=== PATIENT | female | born 1970 | race Caucasian/White ===

== ENCOUNTER 2017-08-14 11:46 | Emergency (ER) | payer SELFPAY ==
[2017-08-14] MEDS ORDERED: ONDANSETRON 4 MG TAB.RAPDIS PO PRN (12:53)
[2017-08-14] MEDS ORDERED: HYDROCODONE/ACETAMINOPHEN 5-325 MG TABLET PO ONE (12:53)
--- NOTE | 2017-08-14 12:54 | ER Document Report ---
ED Medical Screen (RME) - General Chief Complaint: Headache >24 hrs old Stated Complaint: HEADACHE/NAUSEA Time Seen by Provider: 08/14/17 12:52 Notes: Patient complains of severe occipital headache with vomiting for 1 month. States she has had no type of brain imaging in over 3 years. No recent trauma. She does have a history of cervical spine fusion 3 years ago. Patient declines injections and states she prefers pills for pain. TRAVEL OUTSIDE OF THE [place] IN LAST 30 DAYS: No - Related Data Allergies/Adverse Reactions: clarithromycin [From Biaxin] Allergy (Verified 08/14/17 11:48) rash Past Medical History - Social History Chew tobacco use (# tins/day): No Frequency of alcohol use: None Drug Abuse: None Renal/ Medical History: Denies: Hx Peritoneal Dialysis Past Surgical History: Reports: Hx Section - x3, Hx Hysterectomy, Hx Orthopedic Surgery - c-spine, Hx Tonsillectomy Physical Exam - Vital signs Vitals: Temp Pulse Resp BP Pulse Ox 98.2 F 104 H 15 146/87 H 97 08/14/17 11:54 08/14/17 11:54 08/14/17 11:54 08/14/17 11:54 08/14/17 11:54 Course - Vital Signs Vital signs: Temp Pulse Resp BP Pulse Ox 98.2 F 104 H 15 146/87 H 97 08/14/17 11:54 08/14/17 11:54 08/14/17 11:54 08/14/17 11:54 08/14/17 11:54
--- NOTE | 2017-08-14 13:20 | RADIOLOGY REPORT (SQ) ---
EXAM DESCRIPTION: CT HEAD WITHOUT COMPLETED DATE/TIME: 08/14/2017 1:04 pm REASON FOR STUDY: spivey COMPARISON: None. TECHNIQUE: Axial images acquired through the brain without intravenous contrast. Images reviewed wi th bone, brain and subdural windows. Additional sagittal and coronal reconstructions were generated. Images stored on PACS. All CT scanners at this facility use dose modulation, iterative reconstruction, and/or weight based d osing when appropriate to reduce radiation dose to as low as reasonably achievable (ALARA). [facility]: Dose Right [facility]: CareDose [facility]: Dose Right [facility]: Teradose 4D [facility]: IAMINTOIT RADIATION DOSE: CT Rad equipment meets quality standard of care and radiation dose reduction techniq ues were employed. CTDIvol: 53.2 mGy. DLP: 1017 mGy-cm. mGy. LIMITATIONS: None. FINDINGS: VENTRICLES: Normal size and contour. CEREBRUM: No masses. No hemorrhage. No midline shift. No evidence for acute infarction. Normal gra y/white matter differentiation. No areas of low density in the white matter. CEREBELLUM: No masses. No hemorrhage. No alteration of density. No evidence for acute infarction. EXTRAAXIAL SPACES: No fluid collections. No masses. ORBITS AND GLOBE: No intra- or extraconal masses. Normal contour of globe without masses. CALVARIUM: No fracture. PARANASAL SINUSES: No fluid or mucosal thickening. SOFT TISSUES: No mass or hematoma. OTHER: No other significant finding. IMPRESSION: NORMAL BRAIN CT WITHOUT CONTRAST. EVIDENCE OF ACUTE STROKE: NO. COMMENT: Quality ID # [id number]: Final reports with documentation of one or more dose reduction techniques (e.g., Automated exposure control, adjustment of the mA and/or kV according to patient size, use of iterative reconstruction technique) TECHNICAL DOCUMENTATION: JOB ID: [id number] [employer]- All Rights Reserved Reading location - IP/workstation name: [email or web address]
[2017-08-14] MEDS ORDERED: METOCLOPRAMIDE HCL INJ/PF 10 MG/2 ML SDV IV ONE (14:32)
[2017-08-14] MEDS ORDERED: NORMAL SALINE 1000 ML 1,000 ML IV ONE (14:32)
[2017-08-14] MEDS ORDERED: DIPHENHYDRAMINE HCL 50 MG/ML VIAL IV ONE (14:32)
[2017-08-14] MEDS ORDERED: KETOROLAC TROMETHAMINE INJ/PF 30 MG/1 ML SDV IV ONE (14:32)
--- NOTE | 2017-08-14 14:35 | ER Document Report ---
ED Headache - General Chief Complaint: Headache >24 hrs old Stated Complaint: HEADACHE/NAUSEA Time Seen by Provider: 08/14/17 12:52 Mode of Arrival: Ambulatory Information source: Patient Notes: Patient presents complaining of intermittent headache pain for the past month. Patient states that she will develop headache in the morning and will gradually worsened through the day and then resolved at nighttime. Patient states that she has had some nausea with vomiting 3 episodes today. Patient denies any diarrhea. Patient denies any fever or head injury. Patient without any history of IV drug abuse. Patient does complain of occipital headache pain from the right side of her neck. Patient states that her headache pain worsens whenever she rotates her head laterally to the right. Patient does report previous cervical spine fusion in the past. TRAVEL OUTSIDE OF THE [place] IN LAST 30 DAYS: No - HPI Patient complains to provider of: Headache Onset: Other - Daily for the past month Onset was: Gradual Timing: Still present Quality of pain: Achy Pain Level: 4 Associated symptoms: denies: Fever, Photophobia Exacerbated by: Noise - Related Data Allergies/Adverse Reactions: clarithromycin [From Biaxin] Allergy (Verified 08/14/17 11:48) rash Past Medical History - General Information source: Patient - Social History Smoking Status: Never Smoker Chew tobacco use (# tins/day): No Frequency of alcohol use: None Drug Abuse: None Occupation: None Family History: Reviewed & Not Pertinent Patient has suicidal ideation: No Patient has homicidal ideation: No - Past Medical History Cardiac Medical History: Reports: Other - Tachycardia Endocrine Medical History: Reports: Hx Hypothyroidism Renal/ Medical History: Denies: Hx Peritoneal Dialysis Psychiatric Medical History: Reports: Hx Bipolar Disorder Past Surgical History: Reports: Hx Section - x3, Hx Hysterectomy, Hx Orthopedic Surgery - c-spine, Hx Tonsillectomy Review of Systems - Review of Systems Constitutional: No symptoms reported. denies: Fever, Recent illness EENT: No symptoms reported Cardiovascular: No symptoms reported. denies: Chest pain Respiratory: No symptoms reported. denies: Cough Gastrointestinal: Nausea, Vomiting. denies: Abdominal pain, Diarrhea Genitourinary: No symptoms reported Female Genitourinary: No symptoms reported Musculoskeletal: Back pain - Right upper back, Neck pain - Right lateral side of neck Skin: No symptoms reported. denies: Rash Hematologic/Lymphatic: No symptoms reported Neurological/Psychological: Headaches. denies: Confusion, Weakness, Lost consciousness Physical Exam - Vital signs Vitals: Temp Pulse Resp BP Pulse Ox 98.2 F 104 H 15 146/87 H 97 08/14/17 11:54 08/14/17 11:54 08/14/17 11:54 08/14/17 11:54 08/14/17 11:54 - General General appearance: Appears well, Alert In distress: None - HEENT Head: Normocephalic Eyes: Normal Conjunctiva: Normal Ears: Normal External canal: Normal Tympanic membrane: Normal Nasal: Normal Mouth/Lips: Normal Mucous membranes: Normal Pharynx: Normal. No: Erythema, Tonsillar hypertrophy Neck: Other - right paraspinal cervical muscle tenderness. No: Brudzinski, Lymphadenopathy, Meningismus - Respiratory Respiratory status: No respiratory distress Chest status: Nontender Breath sounds: Normal Chest palpation: Normal - Cardiovascular Rhythm: Regular Heart sounds: S1 appreciated, S2 appreciated Murmur: No - Back Back: Tender - Right trapezius muscle tenderness with spasm. No: Deformity/step -off, Vertebra tenderness - Extremities General upper extremity: Normal inspection, Nontender, Normal strength General lower extremity: Normal inspection, Nontender, Normal strength - Neurological Neuro grossly intact: Yes Cognition: Normal Herson Coma Scale Eye Opening: Spontaneous Herson Coma Scale Verbal: Oriented [place] Coma Scale Motor: Obeys Commands Herson Coma Scale Total: 15 Speech: Normal. No: Dysarthria Cranial nerves: Normal. No: Facial palsy, Tongue deviation Cerebellar coordination: Normal. No: Gait ataxia Motor strength normal: LUE, RUE, LLE, RLE Notes: no focal neurologic deficits - Psychological Associated symptoms: Normal affect, Normal mood - Skin Skin Temperature: Warm Skin Moisture: Dry Skin Color: Normal Course - Re-evaluation Re-evalutation: 08/14/17 16:10 Patient reports headache pain is down to 2 out of 5 scale. She does present with symptoms concerning for tension headache. Patient encouraged to follow-up with her primary doctor for recheck of her headache symptoms. The patient presents with headache without signs of COLLECTION ADVISOR bleed, stroke, infection, or other serious etiology. The patient is neurologically intact. Given the extremely low risk of these diagnoses further testing and evaluation for these possibilities does not appear to be indicated at this time. The patient has been instructed to return if the symptoms worsen or change in any way. - Vital Signs Vital signs: Temp Pulse Resp BP Pulse Ox 98.7 F 97 18 122/59 L 96 08/14/17 16:38 08/14/17 16:38 08/14/17 16:38 08/14/17 16:38 08/14/17 16:38 - Diagnostic Test Radiology reviewed: Reports reviewed Discharge - Discharge Clinical Impression: Headache Qualifiers: Headache type: unspecified Headache chronicity pattern: unspecified pattern Intractability: not intractable Qualified Code(s): R51 - Headache Condition: Stable Disposition: HOME, SELF-CARE Instructions: Headache ([facility]), Muscle Relaxers ([facility]), Muscle Strain ([facility]), Reglan ([facility]), Tension Headache ([facility]), Toradol Injection ([facility]) Additional Instructions: Return immediately for any new or worsening symptoms Followup with your primary care provider, call tomorrow to make a followup appointment Follow-up with a neurologist for further evaluation of headache symptoms Prescriptions: Methocarbamol [Robaxin 500 Mg Tablet] 500 mg PO QID PRN #20 tablet PRN Reason: Promethazine HCl [Phenergan 25 mg Tablet] 25 mg PO Q6H PRN #12 tablet PRN Reason: Referrals: MER MCCORMICK MD [EMERITUS] - Follow up as needed RADHA PECK MD [NO LOCAL MD] - Follow up as needed
[2017-08-14] MEDS ORDERED: DEXAMETHASONE SOD PHOS INJ 10 MG/1 ML VIAL IV ONE (16:10)
[2017-08-14] MEDS ORDERED: METHOCARBAMOL 500 MG TABLET PO ONE (16:10)
[2017-08-14 17:09] VITALS: BP 122/59
== END 2017-08-14 16:55 | disposition home or self-care (01) ==
LOC: ER 11:46
DX: R51 Headache (principal); R11.2 Nausea with vomiting, unspecified; R00.0 Tachycardia, unspecified
CPT/HCPCS: 99284; 96361; 96374; 96375; 70450; J1200; S0119; J1885; J2765; J7030; J1100

== ENCOUNTER 2017-09-11 11:26 | Emergency (ER) | payer MEDICAID ==
--- NOTE | 2017-09-11 12:34 | ER Document Report ---
ED Medical Screen (RME) - General Chief Complaint: Shortness Of Breath Stated Complaint: SHORTNESS OF BREATH/CHEST PAIN Time Seen by Provider: 09/11/17 12:16 Mode of Arrival: Ambulatory Information source: Patient Notes: 47-year-old female with a history of hypothyroidism, tachycardia and previous PE in 2013 presents with complaint of shortness of breath that started 3 days prior to arrival, chest pain that started today and swelling of her feet. She is also complaining of worsening pain with deep breathing. Patient was placed on Xarelto for 1 month at the time of her previous PE. 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 She states the symptoms she is feeling today are very similar. She denies any recent illnesses, tobacco use, recent travel, recent surgery, recent injury , estrogen use. I have greeted and performed a rapid medicall assessment of the patient. A comprehensive evaluation and assessment will be performed by another ED provider. Medical decision making, lab review/xrays if performed will be reviewed by the ED provider assuming the patient. PHYSICAL EXAMINATION: GENERAL: Well-appearing, well-nourished and in no acute distress. HEAD: Atraumatic, normocephalic. EYES: Pupils equal round extraocular movements intact, conjunctiva are normal. ENT: Nares patent NECK: Normal range of motion LUNGS: No respiratory distress Musculoskeletal: Normal range of motion, no edema NEUROLOGICAL: Normal speech, normal gait. PSYCH: Normal mood, normal affect. SKIN: Warm, Dry, normal turgor, no rashes or lesions noted. TRAVEL OUTSIDE OF THE [place] IN LAST 30 DAYS: No - HPI Onset: Other - 3 days prior to arrival Onset/Duration: Gradual, Worse Associated Symptoms: Chest pain, Leg swelling, Shortness of breath Exacerbated by: Denies Relieved by: Denies Similar symptoms previously: Yes Recently seen / treated by doctor: No - Related Data Smoking: Quit greater than 1 year Frequency of alcohol use: None Drug Abuse: None Allergies/Adverse Reactions: clarithromycin [From Biaxin] Allergy (Verified 09/11/17 11:26) rash Past Medical History - Social History Chew tobacco use (# tins/day): No Frequency of alcohol use: None Drug Abuse: None Endocrine Medical History: Reports: Hx Hypothyroidism Renal/ Medical History: Denies: Hx Peritoneal Dialysis Psychiatric Medical History: Reports: Hx Bipolar Disorder Past Surgical History: Reports: Hx Section - x3, Hx Hysterectomy, Hx Orthopedic Surgery - c-spine, Hx Tonsillectomy Physical Exam - Vital signs Vitals: Temp Pulse Resp BP Pulse Ox 98.4 F 88 18 141/84 H 97 09/11/17 11:41 09/11/17 11:41 09/11/17 11:41 09/11/17 11:41 09/11/17 11:41 Course - Vital Signs Vital signs: Temp Pulse Resp BP Pulse Ox 98.4 F 88 18 141/84 H 97 09/11/17 11:41 09/11/17 11:41 09/11/17 11:41 09/11/17 11:41 09/11/17 11:41
[2017-09-11 13:16] LABS: ABSOLUTE EOSINOPHILS # (AUTO) 0.2 10^3/uL (0.0-0.6); ABSOLUTE LYMPHOCYTES (AUTO) 2.5 10^3/uL (0.5-4.7); ABSOLUTE MONOCYTES (AUTO) 0.3 10^3/uL (0.1-1.4); ABSOLUTE NEUT (AUTO) 3.6 10^3/uL (1.7-8.2); BASOPHILS % (AUTO) 0.6 % (0-2); EOSINOPHILS % (AUTO) 2.3 % (0-6); HEMATOCRIT 35.9 % (36.0-47.0); HEMOGLOBIN 11.8 g/dL (12.0-15.5); LYMPHOCYTES % (AUTO) 38.5 % (13-45); MEAN CORPUSCULAR HEMOGLOBIN 27.1 pg (27.0-33.4); MEAN CORPUSCULAR HGB CONC 32.9 g/dL (32.0-36.0); MEAN CORPUSCULAR VOLUME 82 fl (80-97); PLATELET COUNT 248 10^3/uL (150-450); RED BLOOD COUNT 4.37 10^6/uL (3.72-5.28); RED CELL DISTRIBUTION WIDTH 16.1 % (11.5-14.0); SEGMENTED NEUTROPHILS % (AUTO) 54.6 % (42-78); TOTAL CELLS COUNTED % (AUTO) 100 %; WHITE BLOOD COUNT 6.6 10^3/uL (4.0-10.5)
[2017-09-11 13:35] LABS: ALANINE AMINOTRANSFERASE 37 U/L (9-52); ALBUMIN 4.1 g/dL (3.5-5.0); ALKALINE PHOSPHATASE 71 U/L (38-126); ANION GAP 15 (5-19); ASPARTATE AMINO TRANSFERASE 24 U/L (14-36); BILIRUBIN,DIRECT 0.2 mg/dL (0.0-0.4); BILIRUBIN,TOTAL 0.2 mg/dL (0.2-1.3); BLOOD UREA NITROGEN 19 mg/dL (7-20); CALCIUM 9.6 mg/dL (8.4-10.2); CARBON DIOXIDE 23 mmol/L (22-30); CHLORIDE 107 mmol/L (98-107); GLUCOSE 104 mg/dL (75-110); POTASSIUM 4.5 mmol/L (3.6-5.0); SODIUM 145.3 mmol/L (137-145); TOTAL PROTEIN 6.8 g/dL (6.3-8.2)
[2017-09-11] MEDS ORDERED: NITROGLYCERIN 2% OINTMENT 1 GM PACKET TP ONE (14:24)
[2017-09-11] MEDS ORDERED: NITROGLYCERIN 0.4 MG/TAB 25 TAB/BOTTLE SL PRN (14:24)
[2017-09-11] MEDS ORDERED: ASPIRIN 325 MG TABLET PO ONE (14:26)
--- NOTE | 2017-09-11 14:33 | ER Document Report ---
ED Cardiac - General Chief Complaint: Shortness Of Breath Stated Complaint: SHORTNESS OF BREATH/CHEST PAIN Time Seen by Provider: 09/11/17 12:16 Mode of Arrival: Ambulatory Notes: Patient is a 48-year-old female that presents today stating on Saturday she started to have some shortness of breath. She denies any runny nose, congestion , cough, calf pain or leg swelling, recent trips of travel. She does state today she started to have some left-sided nonradiating chest discomfort. She denies any nausea, vomiting, or aggravating or relieving factors. Patient states she had a pulmonary embolism 2 years ago and was only on Xarelto for 2 months. She was told she no longer needed to take the medication. She was in assisted prior to the onset of the pulmonary embolism and denies any hormone therapy. She denies a family history of pulmonary emboli. She denies a family history of early heart attacks or strokes. Patient also states very mild frontal slow developing headache. She denies any weakness or numbness to the arms or legs. TRAVEL OUTSIDE OF THE [place] IN LAST 30 DAYS: No - HPI Patient complains to provider of: Chest pain - See above Was the onset of pain: Gradual Is the pain a: New problem Chest pain location: Under breast Quality of pain: Other - See above Chest pain radiation location: None - See above Severity now: Mild Severity at worst: Mild Pain level currently: 2 Positive cardiac history: Yes Associated symptoms: Other - See above Exacerbated by: Denies Relieved by: Nothing Similar symptoms previously: Yes Recently seen / treated by doctor: No - Related Data Allergies/Adverse Reactions: clarithromycin [From Biaxin] Allergy (Verified 09/11/17 11:26) rash Past Medical History - General Information source: Patient - Social History Smoking Status: Former Smoker Cigarette use (# per day): No Chew tobacco use (# tins/day): No Smoking Education Provided: No Frequency of alcohol use: None Drug Abuse: None Family History: Reviewed & Not Pertinent Patient has suicidal ideation: No Patient has homicidal ideation: No Endocrine Medical History: Reports: Hx Hypothyroidism Renal/ Medical History: Denies: Hx Peritoneal Dialysis Psychiatric Medical History: Reports: Hx Bipolar Disorder Past Surgical History: Reports: Hx Section - x3, Hx Hysterectomy, Hx Orthopedic Surgery - c-spine, Hx Tonsillectomy Review of Systems - Review of Systems Constitutional: denies: Fever EENT: denies: Eye discharge, Nose discharge Cardiovascular: denies: Palpitations, Dizziness, Lightheaded Respiratory: Short of breath. denies: Hurts to breathe, Hemoptysis Gastrointestinal: denies: Vomiting Genitourinary: denies: Dysuria Musculoskeletal: denies: Leg swelling Skin: Other - no hives. denies: Rash Neurological/Psychological: Other - no slurred speech -: Yes All other systems reviewed and negative Physical Exam - Vital signs Vitals: Temp Pulse Resp BP Pulse Ox 98.4 F 88 18 141/84 H 97 09/11/17 11:41 09/11/17 11:41 09/11/17 11:41 09/11/17 11:41 09/11/17 11:41 Interpretation: Normal Notes: Reviewed vital signs and nursing note as charted by RN. CONSTITUTIONAL: Alert and oriented and responds appropriately to questions. Well -appearing; well-nourished HEAD: Normocephalic; atraumatic EYES: PERRL; sclerae non-icteric NECK: Supple without meningismus; non-tender CARD: Regular rate and rhythm; no murmurs; symmetric distal pulses RESP: Normal chest excursion without splinting or tachypnea; breath sounds clear and equal bilaterally ABD/GI: Normal bowel sounds; non-distended; soft, non-tender BACK: The back appears normal and is non-tender to palpation EXT: Normal ROM in all joints; non-tender to palpation, no edema SKIN: Normal color for age and race; warm; dry; no acute lesions noted NEURO: CN 2-12 intact; Moves all extremities equally; Motor and sensory function intact PSYCH: The patient's mood and manner are appropriate. Grooming and personal hygiene are appropriate Course - Re-evaluation Re-evalutation: EKG shows a heart of 81, normal sinus rhythm, normal axis, no obvious ST elevation or depression. Inverted T-wave in lead III Given the above history and physical examination, we will obtain basic labs, troponin, CTA of the chest, provide aspirin and nitroglycerin, and reassess. 09/11/17 14:39 Labs and troponin as recorded. CTA has been performed and results pending. 09/11/17 15:07 CTA is unremarkable. 09/11/17 18:10 Repeat EKG shows a heart rate of 93, normal sinus rhythm, normal axis, no obvious ST elevation or depression. No change from previous. Second troponin is normal. Given the above history and physical examination, heart score of 1, repeat troponin that is unremarkable, stable vital signs, I believe it is reasonable to discharge the patient home at this time with outpatient cardiology follow- up. I explained to the patient around 1% chance of MACE in the next 6 weeks. I have explained that I am happy to admit the patient for further evaluation regarding the small percentage or discharge her home with follow-up. She states she would rather go home. I think that this is a reasonable option. - Vital Signs Vital signs: Temp Pulse Resp BP Pulse Ox 98.4 F 88 16 139/71 H 96 09/11/17 11:41 09/11/17 11:41 09/11/17 18:04 09/11/17 18:04 09/11/17 18:04 - Laboratory Result Diagrams: 09/11/17 12:33 09/11/17 12:33 Laboratory results interpreted by me: 09/11/17 09/11/17 12:33 12:33 Hgb 11.8 L Hct 35.9 L RDW 16.1 H Sodium 145.3 H Discharge - Discharge Clinical Impression: Chest pain Qualifiers: Chest pain type: unspecified Qualified Code(s): R07.9 - Chest pain, unspecified Condition: Good Disposition: HOME, SELF-CARE Additional Instructions: Come back immediately with any increased pain, change in location or quality of pain, fevers or vomiting, or any other acute problems. 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 I would recommend taking 81 mg aspirin daily as well as Prilosec [id number]. Referrals: HILTON VILLAGRAN MD [ACTIVE STAFF] - Follow up as needed
--- NOTE | 2017-09-11 14:46 | RADIOLOGY REPORT (SQ) ---
EXAM DESCRIPTION: CTA CHEST COMPLETED DATE/TIME: 09/11/2017 2:04 pm REASON FOR STUDY: Short of breath previous PE chest pain, shortness of breath COMPARISON: None. TECHNIQUE: CT scan of the chest performed using helical scanning technique with dynamic intravenous contrast injection. Images reviewed with lung, soft tissue and bone windows. Reconstructed coronal and sagittal MPR images reviewed. Additional 3 dimensional post-processing performed to develop Maximal Intensity Projection images ([place] P). All images stored on PACS. All CT scanners at this facility use dose modulation, iterative reconstruction, and/or weight based d osing when appropriate to reduce radiation dose to as low as reasonably achievable (ALARA). [facility]: Dose Right [facility]: CareDose [facility]: Dose Right [facility]: Teradose 4D [facility]: [employer] CONTRAST TYPE AND DOSE: 86.4 mL of IV Isovue 370- low osmolar. Contrast bolus optimized for the pulmonary arteries. Not diagnostic for the aorta. RENAL FUNCTION: Creatinine 0.67 RADIATION DOSE: CT Rad equipment meets quality standard of care and radiation dose reduction techniq ues were employed. CTDIvol: 13.2 - 38.0 mGy. DLP: 1414 mGy-cm. . LIMITATIONS: None. FINDINGS: LUNGS AND PLEURA: No masses, infiltrates, pneumothorax. No pleural effusions, calcificati ons. AORTA AND GREAT VESSELS: No aneurysm. Contrast bolus not optimized for the aorta. HEART: No pericardial effusion. No significant coronary artery calcifications. PULMONARY ARTERIES: No emboli visualized in the main pulmonary arteries or the segmental branches. HILAR AND MEDIASTINAL STRUCTURES: No identified masses or abnormal nodes. HARDWARE: None in the chest. UPPER ABDOMEN: Post cholecystectomy. THYROID AND OTHER SOFT TISSUES: No masses. No adenopathy. BONES: No acute or significant finding. 3D MIPS: Confirm above findings. OTHER: No other significant finding. IMPRESSION: No acute infiltrates. No CTA evidence of acute pulmonary emboli COMMENT: Quality ID # 436: Final reports with documentation of one or more dose reduction techniques (e.g., Automated exposure control, adjustment of the mA and/or kV according to patient size, use of iterative reconstruction technique) TECHNICAL DOCUMENTATION: JOB ID: [id number] [employer]- All Rights Reserved Reading location - IP/workstation name: [email or web address]
[2017-09-11] MEDS ORDERED: ACETAMINOPHEN 325 MG TABLET PO ONE (15:42)
[2017-09-11] MEDS ORDERED: MAG HYDROX/AL HYDROX/SIMETH SUSP 30 ML UDCUP PO ONE (16:02)
[2017-09-11] MEDS ORDERED: LIDOCAINE 2% VISCOUS SOLN 20 ML UDCUP PO ONE (16:02)
[2017-09-11] MEDS ORDERED: METOCLOPRAMIDE HCL ORAL SOLN 10 MG/10 ML UDCUP PO ONE (16:02)
[2017-09-11 18:56] VITALS: BP 132/70
--- NOTE | 2017-09-11 22:55 | EKG REPORT ---
SEVERITY:- NORMAL ECG - SINUS RHYTHM : Confirmed by: Meg Vásquez 11-Sep-2017 19:54:48
--- NOTE | 2017-09-12 08:40 | EKG REPORT ---
SEVERITY:- NORMAL ECG - SINUS RHYTHM : Confirmed on behalf of: Meg Vásquez 12-Sep-2017 08:39:58
== END 2017-09-11 18:43 | disposition home or self-care (01) ==
LOC: ER 11:26
DX: R06.02 Shortness of breath (principal); R07.9 Chest pain, unspecified; E03.9 Hypothyroidism, unspecified; Z90.710 Acquired absence of both cervix and uterus
CPT/HCPCS: 93005; 99285; 36415; 85025; 81025; 80053; 84484; 71275; 93010; J3490 ×6

== ENCOUNTER 2017-10-07 10:02 | Emergency (ER) | payer MEDICAID ==
--- NOTE | 2017-10-07 10:57 | ER Document Report ---
ED Medical Screen (RME) - General Chief Complaint: Suicidal Ideation Stated Complaint: PSYCH EVAL Time Seen by Provider: 10/07/17 10:50 Mode of Arrival: Ambulatory Information source: Patient Notes: 47-year-old female who is on Cymbalta presents in an Seroquel presents with complaints of anxiety depression suicidal ideations. Patient notes she does not want to actually harm herself feels that something needs to be done because of her anxiety. She was recently in [place] for suicidal ideations, was there for 1 week notes that when she got out she does feel better. Patient notes he took her off Lamictal and believes this may be the cause of her depression I have greeted and performed a rapid initial assessment of this patient. A comprehensive ED assessment and evaluation of the patient, analysis of test results and completion of the medical decision making process will be conducted by additional ED providers. PHYSICAL EXAMINATION: GENERAL: Well-appearing, well-nourished and in no acute distress. HEAD: Atraumatic, normocephalic. EYES: Pupils equal round extraocular movements intact, conjunctiva are normal. ENT: Nares patent NECK: Normal range of motion LUNGS: No respiratory distress Musculoskeletal: Normal range of motion NEUROLOGICAL: Normal speech, normal gait. PSYCH: Tearful SKIN: Warm, Dry, normal turgor, no rashes or lesions noted. TRAVEL OUTSIDE OF THE [place] IN LAST 30 DAYS: No - Related Data Allergies/Adverse Reactions: clarithromycin [From Biaxin] Allergy (Verified 10/07/17 10:08) rash Past Medical History Endocrine Medical History: Reports: Hx Hypothyroidism Renal/ Medical History: Denies: Hx Peritoneal Dialysis Psychiatric Medical History: Reports: Hx Bipolar Disorder Past Surgical History: Reports: Hx Section - x3, Hx Hysterectomy, Hx Orthopedic Surgery - c-spine, Hx Tonsillectomy Physical Exam - Vital signs Vitals: Temp Pulse Resp BP Pulse Ox 99.0 F 83 18 138/92 H 95 10/07/17 10:16 10/07/17 10:16 10/07/17 10:16 10/07/17 10:16 10/07/17 10:16 Course - Vital Signs Vital signs: Temp Pulse Resp BP Pulse Ox 99.0 F 83 18 138/92 H 95 10/07/17 10:16 10/07/17 10:16 10/07/17 10:16 10/07/17 10:16 10/07/17 10:16
[2017-10-07 11:27] LABS: ABSOLUTE EOSINOPHILS # (AUTO) 0.2 10^3/uL (0.0-0.6); ABSOLUTE LYMPHOCYTES (AUTO) 2.3 10^3/uL (0.5-4.7); ABSOLUTE MONOCYTES (AUTO) 0.2 10^3/uL (0.1-1.4); ABSOLUTE NEUT (AUTO) 3.4 10^3/uL (1.7-8.2); BASOPHILS % (AUTO) 0.5 % (0-2); HEMATOCRIT 35.2 % (36.0-47.0); HEMOGLOBIN 11.7 g/dL (12.0-15.5); LYMPHOCYTES % (AUTO) 37.6 % (13-45); MEAN CORPUSCULAR HGB CONC 33.1 g/dL (32.0-36.0); MEAN CORPUSCULAR VOLUME 82 fl (80-97); MONOCYTES % (AUTO) 3.2 % (3-13); PLATELET COUNT 224 10^3/uL (150-450); RED BLOOD COUNT 4.31 10^6/uL (3.72-5.28); RED CELL DISTRIBUTION WIDTH 15.3 % (11.5-14.0); SEGMENTED NEUTROPHILS % (AUTO) 55.7 % (42-78); TOTAL CELLS COUNTED % (AUTO) 100 %; WHITE BLOOD COUNT 6.1 10^3/uL (4.0-10.5)
[2017-10-07 11:42] LABS: APPEARANCE,URINE SLIGHTLY-CLOUDY; BILIRUBIN,URINE NEGATIVE (NEGATIVE); COLOR,URINE YELLOW; GLUCOSE, URINE NEGATIVE (NEGATIVE); KETONES,URINE NEGATIVE (NEGATIVE); LEUKOCYTE ESTERASE,URINE NEGATIVE (NEGATIVE); NITRITE,URINE NEGATIVE (NEGATIVE); PROTEIN,URINE NEGATIVE (NEGATIVE); URINE SPECIFIC GRAVITY 1.018; UROBILINOGEN,URINE NEGATIVE mg/dL (<2.0)
[2017-10-07 11:55] LABS: ACETAMINOPHEN < 10 ug/mL (10-30); ALANINE AMINOTRANSFERASE 64 U/L (9-52); ALCOHOL < 10 mg/dL (NONE DETECTED); ALKALINE PHOSPHATASE 96 U/L (38-126); ANION GAP 11 (5-19); ASPARTATE AMINO TRANSFERASE 27 U/L (14-36); BILIRUBIN,DIRECT 0.2 mg/dL (0.0-0.4); BILIRUBIN,TOTAL 0.2 mg/dL (0.2-1.3); BLOOD UREA NITROGEN 16 mg/dL (7-20); CALCIUM 9.1 mg/dL (8.4-10.2); CARBON DIOXIDE 26 mmol/L (22-30); CHLORIDE 108 mmol/L (98-107); GLUCOSE 128 mg/dL (75-110); SALICYLATE < 1.0 mg/dL (2.0-20.0); SODIUM 145.2 mmol/L (137-145); TOTAL PROTEIN 6.6 g/dL (6.3-8.2)
--- NOTE | 2017-10-07 11:59 | ER Document Report ---
ED General - General Mode of Arrival: Ambulatory Information source: Patient TRAVEL OUTSIDE OF THE [place] IN LAST 30 DAYS: No <LUIS HOLLIDAY - Last Filed: 10/07/17 13:13> <LUI BARRERA - Last Filed: 10/07/17 14:40> <ADOLFOWILL - Last Filed: 10/07/17 14:48> - General Chief Complaint: Suicidal Ideation Stated Complaint: PSYCH EVAL Time Seen by Provider: 10/07/17 10:50 Notes: Patient is a 47-year-old female with anxiety, bipolar disorder and depression presents to the emergency department complaining of increased anxiety, depression, suicidal ideation and dizzines. Patient states that she was recently at [facility] for 1 week and states that she felt better after leaving, but approximately 1 week later she began to become extremely dizzy and become extremely depressed. She describes her depression as a fogginess. Patient admits to suicidal ideation but denies a suicidal plan. She states she just wants everything to be over. Patient states she has had previous workups performed regarding her dizziness which has been found to be unremarkable. According to [place] Controlled Substance website, patient was prescribed Clonazepam (1mg, 3x daily) for approximately 5 years until she was discharged from [facility] for which she was prescribed a 1 week supply. No evidence shows she has filled any other prescriptions. Patient was seen and discharged 1 month ago for shortness of breath and chest pain and had a negative CTA of chest and abdomen. Patient was also seen and discharged approximately 2 months ago for a headache and nausea and had a negative CT scan of the head. (LUIS HOLLIDAY) - Related Data Allergies/Adverse Reactions: clarithromycin [From Biaxin] Allergy (Verified 10/07/17 10:08) rash Past Medical History - General Information source: Patient - Social History Smoking Status: Never Smoker Frequency of alcohol use: None Drug Abuse: None Family History: Reviewed & Not Pertinent Patient has suicidal ideation: Yes Patient has homicidal ideation: No Endocrine Medical History: Reports: Hx Hypothyroidism Psychiatric Medical History: Reports: Hx Bipolar Disorder Past Surgical History: Reports: Hx Section - x3, Hx Hysterectomy, Hx Orthopedic Surgery - c-spine, Hx Tonsillectomy <LUIS HOLLIDAY - Last Filed: 10/07/17 13:13> Review of Systems - Review of Systems Constitutional: No symptoms reported EENT: No symptoms reported Cardiovascular: See HPI, Dizziness Respiratory: No symptoms reported Gastrointestinal: No symptoms reported Genitourinary: No symptoms reported Female Genitourinary: No symptoms reported Musculoskeletal: No symptoms reported Hematologic/Lymphatic: No symptoms reported Neurological/Psychological: See HPI, Depression, Anxiety, Suicidal ideation -: Yes All other systems reviewed and negative <LUIS HOLLIDAY - Last Filed: 10/07/17 13:13> Physical Exam - General General appearance: Appears well, Alert In distress: None - HEENT Head: Normocephalic, Atraumatic Eyes: Normal Conjunctiva: Normal Extraocular movements intact: Yes Pupils: PERRL Mucous membranes: Normal Neck: Normal - Respiratory Respiratory status: No respiratory distress - Cardiovascular Rhythm: Regular Heart sounds: Normal auscultation Murmur: No Friction rub: No Gallop: None auscultated - Abdominal Inspection: Morbidly Obese Distension: No distension Bowel sounds: Normal Tenderness: Nontender Organomegaly: No organomegaly - Back Back: Normal - Extremities General upper extremity: Normal ROM General lower extremity: Normal ROM - Neurological Neuro grossly intact: Yes Cognition: Normal Orientation: AAOx4 [place] Coma Scale Eye Opening: Spontaneous [place] Coma Scale Verbal: Oriented [place] Coma Scale Motor: Obeys Commands [place] Coma Scale Total: 15 Speech: Normal - Psychological Associated symptoms: Normal affect, Normal mood - Skin Skin Temperature: Warm Skin Moisture: Dry Skin Color: Normal <MGCOLLINHENRY - Last Filed: 10/07/17 13:13> - Vital signs Vitals: Temp Pulse Resp BP Pulse Ox 99.0 F 83 18 138/92 H 95 10/07/17 10:16 10/07/17 10:16 10/07/17 10:16 10/07/17 10:16 10/07/17 10:16 Course - Laboratory Result Diagrams: 10/07/17 11:05 10/07/17 11:05 <LUIS HOLLIDAY - Last Filed: 10/07/17 13:13> - Laboratory Result Diagrams: 10/07/17 11:05 10/07/17 11:05 <LUI BARRERA - Last Filed: 10/07/17 14:40> - Laboratory Result Diagrams: 10/07/17 11:05 10/07/17 11:05 <WILL MATA - Last Filed: 10/07/17 14:48> - Vital Signs Vital signs: Temp Pulse Resp BP Pulse Ox 99.0 F 83 18 138/92 H 95 10/07/17 10:16 10/07/17 10:16 10/07/17 10:16 10/07/17 10:16 10/07/17 10:16 - Laboratory Laboratory results interpreted by me: 10/07/17 10/07/17 11:05 11:05 Hgb 11.7 L Hct 35.2 L RDW 15.3 H Sodium 145.2 H Chloride 108 H Glucose 128 H ALT 64 H Salicylates < 1.0 L Acetaminophen < 10 L Discharge <LUIS HOLLIDAY - Last Filed: 10/07/17 13:13> <LUI BARRERA - Last Filed: 10/07/17 14:40> <WILL MATA - Last Filed: 10/07/17 14:48> - Discharge Clinical Impression: Suicidal ideation, Dizziness Bipolar disorder, unspecified Qualifiers: Active/Remission status: in partial remission Most recent bipolar episode type : most recent episode unspecified type Qualified Code(s): F31.70 - Bipolar disorder, currently in remission, most recent episode unspecified Clinical Impression: (Ruled Out): Depression Condition: Stable Disposition: HOME, SELF-CARE Additional Instructions: Bipolar Disorder Bipolar disorder is also called manic-depressive disorder. Depression alternates with brain hyperactivity called sujata. Each phase lasts from several days to a few weeks. We don't know exactly what causes bipolar disorder , but it's treatable. During the "manic phase," you may feel elated and energetic. You may have racing thoughts, rapid speech, increased activity, and grandiose ideas. During this time, you may not realize how poor your judgement is. Inappropriate spending, drug abuse, excessive alcohol use, marriage problems, and irresponsible sexual behavior are common during the manic phase. During the "depressive phase," you might feel depressed, guilty, worthless , fatigued, and unable to concentrate. You might have thoughts of suicide. Good treatments are available for bipolar disorder. [place] is a classic drug for bipolar disorder, and is still often useful. If the manic phase is very mild, an antidepressant alone can be prescribed. If the manic phase is very severe, an antipsychotic medicine (such as Haldol) may be needed. The treatment must be matched to your symptoms, so it's important to work closely with your psychiatric care provider. Contact your physician, the hospital emergency center, crisis line, or your counsellor if you are losing control or having self-destructive thoughts. You have been provided prescriptions for your medications; please take as prescribed. Please decrease your Cymbalta to 60 mg daily Please decrease your Seroquel to 100mg nightly Please start Depakote 250 mg twice daily Please start BuSpar 5 mg every morning and 10 mg nightly Please stop taking your Klonopin Please continue taking your prazosin as previously prescribed Your recommended to follow-up with [facility] tomorrow for your continued mental health services; it is recommended you contact them in regards to your referral. AT ANY TIME, IF YOUR SYMPTOMS CHANGE SIGNIFICANTLY OR WORSEN OR YOU DEVELOP NEW SYMPTOMS, RETURN TO THE EMERGENCY DEPARTMENT IMMEDIATELY FOR RE-EVALUATION. Prescriptions: Quetiapine Fumarate [Seroquel 100 mg Tablet] 100 mg PO QHS #7 tablet Buspirone HCl [Buspar 5 mg Tablet] 1 tab PO ASDIR #21 tab Divalproex Sodium [Depakote] 250 mg PO BID #14 tablet. Duloxetine HCl [Cymbalta] 60 mg PO DAILY #7 capsule. Referrals: SANDRA VELASQUEZ FNP-C [Primary Care Provider] - Follow up as needed [facility] [Outside] - Follow up tomorrow Scribe Attestation: 10/07/17 14:22 I personally performed the services described in the documentation, reviewed and edited the documentation which was dictated to the scribe in my presence, and it accurately records my words and actions. (WILL MATA) Scribe Documentation - Scribe Written by Ranulfo:: Ranulfo Qiu, 10/07/2017 12:08 acting as scribe for :: Adolfo <LUIS HOLLIDAY - Last Filed: 10/07/17 13:13>
[2017-10-07 12:01] LABS: URINE AMPHETAMINES SCREEN NEGATIVE; URINE BARBITURATES SCREEN UNCONFIRMED POSITIVE; URINE BENZODIAZEPINES SCREEN NEGATIVE; URINE COCAINE SCREEN NEGATIVE; URINE MARIJUANA (THC) SCREEN NEGATIVE; URINE METHADONE SCREEN NEGATIVE; URINE PHENCYCLIDINE SCREEN NEGATIVE
[2017-10-07 12:20] LABS: FREE T3 3.19 pg/mL (2.77-5.27); FREE T4 (FREE THYROXINE) 0.94 ng/dL (0.78-2.19)
--- NOTE | 2017-10-07 13:31 | EKG REPORT ---
SEVERITY:- NORMAL ECG - SINUS RHYTHM : Confirmed by: Amaury Griffin MD 07-Oct-2017 13:30:31
[2017-10-07] MEDS ORDERED: ACETAMINOPHEN 325 MG TABLET PO ONE (14:27)
[2017-10-07 15:00] VITALS: BP 128/72
== END 2017-10-07 15:00 | disposition home or self-care (01) ==
LOC: ER 10:02
DX: F31.70 Bipolar disorder, currently in remission, most recent episode unspecified (principal); R42 Dizziness and giddiness; F41.9 Anxiety disorder, unspecified
CPT/HCPCS: 36415; 80053; 80307; 81001; 84439; 84481; 84703; 85025; 93005; 93010; 99285

== ENCOUNTER 2017-12-14 10:39 | Emergency (ER) | payer MEDICAID ==
[2017-12-14 11:01] VITALS: BP 145/77
[2017-12-14] MEDS ORDERED: ONDANSETRON 4 MG TAB.RAPDIS PO ONE (11:42)
--- NOTE | 2017-12-14 11:47 | ER Document Report ---
ED Medical Screen (RME) - General Chief Complaint: Nausea/Vomiting Stated Complaint: ABDOMINAL PAIN, VOMITING Time Seen by Provider: 12/14/17 11:42 Mode of Arrival: Ambulatory Information source: Patient Notes: This is a 47-year-old female with a history of migraine headaches who presents to the emergency room with a typical migraine headache she states that Fioricet has worked in the past for her and she ran out of her medicines. She does not have a primary care doctor right now but she did get Medicaid and she is planning on going to her primary care. She states she went to the urgent care and was told that they do not prescribe Fioricet. She was given Imitrex and Phenergan which has not worked for her. She denies any fever, chills, vomiting. She does report nausea with the migraine headaches which is typical. She denies any recent illnesses. TRAVEL OUTSIDE OF THE [place] IN LAST 30 DAYS: No - HPI Onset: Last week Onset/Duration: Gradual Quality of pain: Dull Severity: Moderate Pain Level: 2 Associated Symptoms: Headache, Nausea. denies: Fever Exacerbated by: Denies Relieved by: Denies Similar symptoms previously: Yes Recently seen / treated by doctor: Yes - Related Data Smoking: Non-smoker Frequency of alcohol use: None Drug Abuse: None Allergies/Adverse Reactions: clarithromycin [From Biaxin] Allergy (Verified 12/14/17 10:48) rash tramadol Allergy (Verified 12/14/17 10:48) Past Medical History - General Information source: Patient - Social History Cigarette use (# per day): No Chew tobacco use (# tins/day): No Frequency of alcohol use: None Drug Abuse: None Lives with: Family Family history: None Neurological Medical History: Reports: Hx Migraine Endocrine Medical History: Reports: Hx Hypothyroidism Renal/ Medical History: Denies: Hx Peritoneal Dialysis Psychiatric Medical History: Reports: Hx Bipolar Disorder Past Surgical History: Reports: Hx Section - x3, Hx Hysterectomy, Hx Orthopedic Surgery - c-spine, Hx Tonsillectomy Review of Systems - Review of Systems Constitutional: denies: Chills, Fever EENT: No symptoms reported Cardiovascular: denies: Chest pain, Palpitations, Heart racing Respiratory: denies: Cough, Short of breath Gastrointestinal: Nausea. denies: Vomiting Genitourinary: No symptoms reported Female Genitourinary: No symptoms reported Musculoskeletal: No symptoms reported Skin: No symptoms reported Hematologic/Lymphatic: No symptoms reported Neurological/Psychological: See HPI. denies: Loss of power, Paralysis, Seizure , Lost consciousness Physical Exam - Vital signs Vitals: Temp Pulse Resp BP Pulse Ox 98.7 F 92 14 145/77 H 98 12/14/17 11:00 12/14/17 11:00 12/14/17 11:12/14/17 11:12/14/17 11:00 Notes: Physical exam: GENERAL: A 7-year-old female, alert and oriented 3, no acute distress HEAD: Atraumatic, normocephalic. EYES: Pupils equal round and reactive to light, extraocular movements intact, sclera anicteric, conjunctiva are normal. ENT: oropharynx clear without exudates. Moist mucous membranes. NECK: Normal range of motion, supple without obvious mass. LUNGS: Breath sounds clear to auscultation bilaterally and equal. No wheezes rales or rhonchi. HEART: Regular rate and rhythm without murmurs, rubs or gallops. ABDOMEN: Soft, normoactive bowel sounds. No tenderness to palpation. No guarding, no rebound. No masses appreciated. EXTREMITIES: Normal range of motion, no pitting or edema. No clubbing or cyanosis. NEUROLOGICAL: No significant photophobia. Neck supple (as mentioned above). Cranial nerves II through XII grossly intact. Normal speech, moving all extremities, motor 5/5, gait normal, no evidence of meningismus. PSYCH: Normal mood, normal affect. SKIN: Warm, Dry, normal turgor, no rashes or lesions noted. Course - Re-evaluation Re-evalutation: 12/14/17 11:50 I did have a long conversation with the patient regarding work for her. I will give her a short course of Fioricet and Zofran which is worked in the past. I will give her the phone numbers of primary care doctors affiliated with this hospital (she is looking for a primary care doctor). - Vital Signs Vital signs: Temp Pulse Resp BP Pulse Ox 98.7 F 92 14 145/77 H 98 12/14/17 11:00 12/14/17 11:00 12/14/17 11:00 12/14/17 11:12/14/17 11:00 Doctor's Discharge - Discharge Clinical Impression: Migraine headache Condition: Stable Disposition: HOME, SELF-CARE Instructions: Migraine Headache ([facility]) Additional Instructions: Return to the emergency room for worsening headache, fever (temperature greater than 100.4), neck stiffness, persistent vomiting or any concerns or getting worse. Follow-up with a primary care doctor: Recommendations: Dr. Juliann Soares [address], [place] [address] [phone] Dr Saucedo Address: [address] [place] [address] [place] [address] Dr Faust Address: [address] [place] [address] [place] [address] Prescriptions: Butalb/Acetaminophen/Caffeine [Fioricet (50-325-40 mg) Tablet] 1 tab PO Q4HP PRN #30 tab PRN Reason: Ondansetron HCl [Zofran 4 mg Tablet] 1 - 2 tab PO Q4H PRN #10 tablet PRN Reason:
== END 2017-12-14 11:51 | disposition home or self-care (01) ==
LOC: ER 10:39
DX: G43.909 Migraine, unspecified, not intractable, without status migrainosus (principal); R11.0 Nausea; Z88.1 Allergy status to other antibiotic agents; Z88.5 Allergy status to narcotic agent
CPT/HCPCS: 99283; S0119

== ENCOUNTER 2018-01-07 15:10 | Emergency (ER) | payer MEDICAID ==
[2018-01-07 15:22] VITALS: BP 111/89
[2018-01-07 15:46] LABS: AMORPHOUS SEDIMENT,URINE TRACE /HPF; APPEARANCE,URINE CLOUDY; BILIRUBIN,URINE NEGATIVE (NEGATIVE); COLOR,URINE YELLOW; GLUCOSE, URINE NEGATIVE (NEGATIVE); KETONES,URINE NEGATIVE (NEGATIVE); LEUKOCYTE ESTERASE,URINE LARGE (NEGATIVE); NITRITE,URINE POSITIVE (NEGATIVE); PROTEIN,URINE 30 mg/dL (NEGATIVE); URINE SPECIFIC GRAVITY 1.005; UROBILINOGEN,URINE NEGATIVE mg/dL (<2.0)
[2018-01-07] MEDS ORDERED: IBUPROFEN 800 MG TABLET PO ONE (16:10)
[2018-01-07] MEDS ORDERED: MAGNESIUM CITRATE 296 ML BOTTLE PO ONE (16:10)
[2018-01-07] MEDS ORDERED: NITROFURANTOIN MONOHYD/M-CRYST 100 MG CAPSULE PO ONE (16:10)
--- NOTE | 2018-01-07 16:18 | ER Document Report ---
ED GI/ - General Chief Complaint: Urinary Problem Stated Complaint: URINARY ISSUE Time Seen by Provider: 01/07/18 16:10 Mode of Arrival: Ambulatory Information source: Patient Notes: 48-year-old female presents to ED for complaint of pain in the back suprapubic area flank area. She states she has not had a bowel movement in over a week. She states she has been having trouble urinating that started after the not having a bowel movement. She also has a headache. She has some pain in her back in her legs that started after the constipation. She also has a white tongue but there is no yeast noted on the tongue. Patient is afebrile no signs or symptoms of sepsis. Urine has already been sent and returned and she does have a urinary tract infection. TRAVEL OUTSIDE OF THE [place] IN LAST 30 DAYS: No - HPI Patient complains to provider of: Flank pain, Other - Urinary hesitancy suprapubic pain, flank pain, back pain, headache. Onset: Last week Timing/Duration: Persistent Quality of pain: Achy, Cramping Severity at maximum: Moderate Severity in ED: Moderate Pain Level: 3 Location: Left flank, Right flank, Suprapubic Vaginal bleeding (Compared to normal period): None Associated symptoms: Constipation, Urinary hesitancy, Urinary urgency, Other - Suprapubic pain back pain headache no stool in over 7 days Exacerbated by: Denies Relieved by: Denies Similar symptoms previously: Yes Recently seen / treated by doctor: No - Related Data Allergies/Adverse Reactions: amoxicillin [From Augmentin] Allergy (Verified 01/07/18 15:11) clarithromycin [From Biaxin] Allergy (Verified 01/07/18 15:11) rash clavulanic acid [From Augmentin] Allergy (Verified 01/07/18 15:11) tramadol Allergy (Verified 01/07/18 15:11) Past Medical History - Social History Smoking Status: Never Smoker Chew tobacco use (# tins/day): No Frequency of alcohol use: None Drug Abuse: None Family History: Reviewed & Not Pertinent Patient has suicidal ideation: No Patient has homicidal ideation: No Neurological Medical History: Reports: Hx Migraine Endocrine Medical History: Reports: Hx Hypothyroidism Renal/ Medical History: Denies: Hx Peritoneal Dialysis Psychiatric Medical History: Reports: Hx Bipolar Disorder Past Surgical History: Reports: Hx Section - x3, Hx Hysterectomy, Hx Orthopedic Surgery - c-spine, Hx Tonsillectomy Review of Systems - Review of Systems Constitutional: No symptoms reported EENT: No symptoms reported Cardiovascular: No symptoms reported Respiratory: No symptoms reported Gastrointestinal: Abdominal pain, Constipation. denies: Nausea, Vomiting Genitourinary: Burning, Dysuria, Flank pain, Urgency, Other - Hesitancy Female Genitourinary: No symptoms reported Musculoskeletal: No symptoms reported Skin: No symptoms reported Hematologic/Lymphatic: No symptoms reported Neurological/Psychological: Headaches -: Yes All other systems reviewed and negative Physical Exam - Vital signs Vitals: Temp Pulse Resp BP Pulse Ox 97.8 F 91 20 111/89 H 97 01/07/18 15:21 01/07/18 15:21 01/07/18 15:21 01/07/18 15:21 01/07/18 15:21 Interpretation: Normal - General General appearance: Appears well, Alert - HEENT Head: Normocephalic, Atraumatic Eyes: Normal Pupils: PERRL - Respiratory Respiratory status: No respiratory distress Chest status: Nontender Breath sounds: Normal Chest palpation: Normal - Cardiovascular Rhythm: Regular Heart sounds: Normal auscultation Murmur: No - Abdominal Inspection: Normal Distension: No distension Bowel sounds: Hyperactive Tenderness: Tender Organomegaly: No organomegaly - Back Back: Normal, Nontender - Extremities General upper extremity: Normal inspection, Nontender, Normal color, Normal ROM , Normal temperature General lower extremity: Normal inspection, Nontender, Normal color, Normal ROM , Normal temperature, Normal weight bearing. No: Stephen's sign - Neurological Neuro grossly intact: Yes Cognition: Normal Orientation: AAOx4 Herson Coma Scale Eye Opening: Spontaneous [place] Coma Scale Verbal: Oriented Herson Coma Scale Motor: Obeys Commands Herson Coma Scale Total: 15 Speech: Normal Motor strength normal: LUE, RUE, LLE, RLE Sensory: Normal - Psychological Associated symptoms: Normal affect, Normal mood - Skin Skin Temperature: Warm Skin Moisture: Dry Skin Color: Normal Course - Re-evaluation Re-evalutation: 01/07/18 16:26 Patient treated with Macrobid for her UTI and mag citrate for her constipation and ibuprofen for her headache. Patient was instructed to use mag citrate for a day or 2 for the constipation and also to use MiraLAX twice a day. Patient encouraged to drink at least 8 cups of water a day. Patient was given a prescription for Macrobid for her UTI. Patient was discharged home to follow- up with her primary doctor or return to the ED no relief of symptoms. - Vital Signs Vital signs: Temp Pulse Resp BP Pulse Ox 97.8 F 91 20 111/89 H 97 01/07/18 15:21 01/07/18 15:21 01/07/18 15:21 01/07/18 15:21 01/07/18 15:21 - Laboratory Laboratory results interpreted by me: 01/07/18 15:20 Urine Protein 30 H Urine Blood LARGE H Urine Nitrite POSITIVE H Ur Leukocyte Esterase LARGE H Discharge - Discharge Clinical Impression: Flank pain UTI (urinary tract infection) Qualifiers: Urinary tract infection type: site unspecified Hematuria presence: with hematuria Qualified Code(s): N39.0 - Urinary tract infection, site not specified Abdominal pain Qualifiers: Abdominal location: generalized Qualified Code(s): R10.84 - Generalized abdominal pain Constipation Qualifiers: Constipation type: unspecified constipation type Qualified Code(s): K59.00 - Constipation, unspecified Condition: Good Disposition: HOME, SELF-CARE Instructions: Family Physicians / Practices Additional Instructions: ABDOMINAL PAIN: There are many causes of abdominal pain. Pain can mean a serious problem requiring surgery (such as appendicitis). It can also be an innocent problem that goes away on its own (such as a viral infection). Often, time must pass to determine the cause of pain. The physician does not feel that hospitalization is necessary, at present. Things may change within the next 24 hours. Call the doctor or come back for re- examination if any problems occur, such as: (1) Pain that becomes more severe, steady, or becomes concentrated in one specific area. Also, pain that is more severe with movement or coughing. (2) Vomiting that persists or becomes more frequent. (3) Blood in the vomitus, urine, or bowel movements. Blood in the stool may have a tarry or black appearance. (4) Shaking chills or fever greater than 100 degrees F. (5) The abdomen becomes more distended or swollen. (6) Bowel movements cease. (7) Failure to improve as expected. URINARY TRACT INFECTION: Your evaluation indicates that you have a urinary tract infection. This is due to germs growing in the bladder. This is a common problem. This infection usually responds quickly to antibiotics. Your antibiotic should be taken exactly as prescribed. Drink plenty of fluids -- three to four quarts a day. Occasionally, a bladder anesthetic will be prescribed to help stop the feeling of urgency until the antibiotic has a chance to clear the infection. This may cause your urine to be dark orange. Certain urine infections require a culture. If the doctor obtained a culture, the results will be back in two days. You should call to see if a change in treatment is needed. A repeat urinalysis after you finish treatment is often recommended. The physician will let you know if further testing is required. Call the doctor if you develop fever, chills, flank pain, inability to urinate, or blood in the urine. CONSTIPATION: Constipation is a common problem. It is especially likely as you get older. Constipation is a common cause of abdominal pain, but sometimes causes no symptoms at all. Causes of constipation include certain medications, dehydration, diets, inactivity, and low-fiber intake. Rarely, it can be a symptom of underlying disease. The physician has evaluated you for this. Avoid constipation by eating a diet high in fiber, fruits, and vegetables. Drink plenty of liquids. Get regular exercise. If possible, avoid constipating medicines like narcotic pain medication. Some vitamin tablets can cause constipation. Stool softeners may be needed for difficult cases. An excellent stool softener is Konsyl which is available at [employer] [employer] [facility]. Just add a teaspoon to a glass of pineapple or orange juice daily or twice a day if needed. Laxatives are useful for occasional constipation. You should use them only when necessary. Too-frequent use can make your bowels dependent on them. Some over the counter laxatives available without prescription are: Milk of Magnesia, 1-2 tablespoons twice a day Dulcolax, 5 mg pill or 10 mg suppository. Citrate of Magnesia, 4-5 ounces a day for a day or two Please start MiraLAX tonight and take it twice a day for the next 2 weeks. Drink at least 8 cups of water a day. For acute constipation, Fleet's Enemas and Dulcolax suppositories are helpful. Chronic, penitentiary use of laxatives or enemas is not a good idea. Your bowel may become dependant on them. You do not need to have a bowel movement every day. Many people do fine with a bowel movement every three or four days. You should call your doctor or return for re-evaluation if you pass blood in the stool, or if you develop fever or increasing abdominal pain. BULK LAXATIVES: Bulk laxatives make the stool softer and bulkier. They're useful for preventing constipation. You can choose between psyllium, methylcellulose, and polycarbophil. They are available without a prescription. Psyllium brand names include Konsyl, Metamucil, Perdiem, Effer-Syllium and Hydrocil. It's available as powder, flavored drink powder, or chewable. The usual dose of psyllium powder is one heaping teaspoon in water each morning, increasing to twice a day if needed. Barber juice can disguise the slightly grainy texture. Methylcellulose is marketed as Citrucel and other brands. The average dose is two grams in a cup of water one to three times a day. Polycarbophil is marketed as Fiber-Con. Take two tablets with a cup of water one to three times a day. LAXATIVE: A laxative agent has been prescribed for your condition. This should result in passage of stool within 12 hours. Some mild intestinal cramping is common as the hard stool begins to move. You may have loose or runny stools for a short time. Contact your doctor if there is severe cramping, vomiting, or passage of blood. Return for further care if this medicine fails to improve your condition. NITROFURANTOIN (MACRODANTIN, MACROBID): You have received a prescription for nitrofurantoin (Macrodantin). This antibiotic is used for urinary tract infections. Women who are or nursing should notify the physician before taking this medicine. If you have ever had a problem caused by this medication in the past, be sure the physician is aware of it. Common side effects of this medicine include nausea, vomiting, or decreased appetite. Notify your physician if these side effects become severe. Immediately stop this medicine and call the physician if you develop cough , shortness of breath, chest pain, weakness, jaundice (yellow color of the skin and whites of the eyes), or a skin rash. FOLLOW-UP CARE: If you have been referred to a physician for follow-up care, call the physician s office for an appointment as you were instructed or within the next two days. If you experience worsening or a significant change in your symptoms, notify the physician immediately or return to the Emergency Department at any time for re-evaluation. Prescriptions: Nitrofurantoin Monohyd/M-Cryst [Macrobid 100 mg Capsule] 100 mg PO BID #14 capsule
== END 2018-01-07 16:25 | disposition home or self-care (01) ==
LOC: ER 15:10
DX: K59.00 Constipation, unspecified (principal); R10.84 Generalized abdominal pain; N39.0 Urinary tract infection, site not specified; R10.9 Unspecified abdominal pain; R39.198 Other difficulties with micturition; R51 Headache; M54.9 Dorsalgia, unspecified; M79.604 Pain in right leg; M79.605 Pain in left leg
CPT/HCPCS: 99284; 81001; J3490 ×3; J8499

== ENCOUNTER 2018-01-16 12:32 | Emergency (ER) | payer MEDICAID ==
--- NOTE | 2018-01-16 13:12 | ER Document Report ---
HPI - HPI Pain Level: 0 Notes: Patient is a 48-year-old female with a history of bipolar, depression, and mental health disease who presents to the ED requesting medication refill. Patient states that she has been out of her medicines and has not been able to get in touch with her clinic, [facility], as they have been closed. Patient is requesting Abilify, clonazepam, Cymbalta, prazosin, Ambien, and Lamictal. Patient states that her mood has been stable on these medications that she does well with them. She has been eating and drinking without any difficulties. She is urinating normally and having normal bowel movements. She has not had any suicidal or homicidal thoughts or ideations. No seizure history. Denies any headache, fever, neck pain, changes in vision/speech/mentation/hearing, URI , sore throat, chest pain, palpitations, syncope, cough, shortness of breath, wheeze, dyspnea, abdominal pain, nausea/vomiting/diarrhea, urinary retention, dysuria, hematuria, loss of control of bowel or bladder, numbness/tingling, saddle anesthesia, muscle paralysis/weakness, or rash. - ROS Systems Reviewed and Negative: Yes All other systems reviewed and negative Past Medical History - Social History Smoking Status: Unknown if Ever Smoked Family History: Reviewed & Not Pertinent Neurological Medical History: Reports: Hx Migraine Endocrine Medical History: Reports: Hx Hypothyroidism Renal/ Medical History: Denies: Hx Peritoneal Dialysis Psychiatric Medical History: Reports: Hx Bipolar Disorder Past Surgical History: Reports: Hx Section - x3, Hx Hysterectomy, Hx Orthopedic Surgery - c-spine, Hx Tonsillectomy Vertical Provider Document - CONSTITUTIONAL Agree With Documented VS: Yes Notes: PHYSICAL EXAMINATION: GENERAL: Well-appearing, well-nourished and in no acute distress. A&Ox4. Answers questions appropriately. HEAD: Atraumatic, normocephalic. EYES: Pupils equal round and reactive to light, extraocular movements intact, sclera anicteric, conjunctiva are normal. ENT: Nares patent and without discharge. oropharynx clear without exudates. No tonsilar hypertrophy or erythema. Moist mucous membranes. NECK: Normal range of motion, supple without lymphadenopathy LUNGS: Breath sounds clear to auscultation bilaterally and equal. No wheezes rales or rhonchi. HEART: Regular rate and rhythm without murmurs, rubs, gallops. Musculoskeletal: FROM to passive/active. Strength 5+/5. Extremities: No cyanosis, clubbing, or edema b/l. Peripheral pulses 2+. Capillary refill less than 3 seconds. NEUROLOGICAL: Cranial nerves grossly intact. Normal speech, normal gait. PSYCH: Normal mood, normal affect. SKIN: Warm, Dry, normal turgor, no rashes or lesions noted. - INFECTION CONTROL TRAVEL OUTSIDE OF THE [place] IN LAST 30 DAYS: No Course - Re-evaluation Re-evalutation: 01/16/18 13:08 Patient is an afebrile, well-hydrated, 48-year-old female who presents for medication refill. Vitals are acceptable without significant tachycardia, tachypnea, or hypoxia. PE is otherwise unremarkable. Patient has not had any SI/HI. She is tolerating p.o. without difficulties and is nontoxic-appearing. I did review with patient that I will not be refilling her clonazepam or Ambien. Patient is in agreement with this. I will prescribe her the Abilify, Cymbalta, prazosin, and Lamictal. Conservative measures otherwise for symptoms. Recheck with your PCM/mental health provider next week. Return to the ED with any worsening/concerning symptoms otherwise as reviewed in discharge. Patient is in agreement. - Vital Signs Vital signs: Temp Pulse Resp BP Pulse Ox 98.1 F 113 H 16 142/75 H 99 01/16/18 12:42 01/16/18 12:42 01/16/18 12:42 01/16/18 12:42 01/16/18 12:42 Discharge - Discharge Clinical Impression: Medication refill Condition: Stable Disposition: HOME, SELF-CARE Additional Instructions: Take medications as directed Healthy diet and exercise Recheck with your PCM/mental health facility next week. Return to the ED with any worsening symptoms and/or development of fever, headache, changes in behavior/mentation/vision/speech, chest pain, palpitations , syncope, shortness of breath, trouble breathing, abdominal pain, n/v/d, blood in stool/urine, loss of control of bowel/bladder, urinary retention, muscle weakness/paralysis, saddle anesthesia, numbness/tingling, SI/HI, seizures, or other worsening symptoms that are concerning to you. Prescriptions: Aripiprazole [Abilify 5 mg Tablet] 5 mg PO QHS #10 tablet Lamotrigine [Lamictal] 200 mg PO QHS #10 tablet Prazosin HCl 2 mg PO QHS #10 capsule Duloxetine HCl [Cymbalta] 60 mg PO DAILY #10 capsule.dr Forms: Elevated Blood Pressure Referrals: [facility] [Provider Group] - Follow up in 3-5 days
[2018-01-16 13:44] VITALS: BP 136/78
== END 2018-01-16 13:44 | disposition home or self-care (01) ==
LOC: ER 12:32
DX: Z76.0 Encounter for issue of repeat prescription (principal); F32.9 Major depressive disorder, single episode, unspecified; Z79.899 Other long term (current) drug therapy
CPT/HCPCS: 99281

== ENCOUNTER 2018-02-27 14:55 | Emergency (ER) | payer MEDICAID ==
[2018-02-27 15:39] VITALS: BP 136/94
[2018-02-27] MEDS ORDERED: HYDROCODONE/ACETAMINOPHEN 5-325 MG TABLET PO ONE (17:04)
--- NOTE | 2018-02-27 18:05 | RADIOLOGY REPORT (SQ) ---
EXAM DESCRIPTION: KNEE RIGHT 4 VIEWS COMPLETED DATE/TIME: 02/27/2018 4:50 pm REASON FOR STUDY: right knee pain x3 weeks, worse now COMPARISON: None. NUMBER OF VIEWS: Four views. TECHNIQUE: AP, lateral, and both oblique radiographic images acquired of the right knee. LIMITATIONS: None. FINDINGS: MINERALIZATION: Normal. BONES: No acute fracture or dislocation. No worrisome bone lesions. JOINT: No effusion. SOFT TISSUES: No soft tissue swelling. No radio-opaque foreign body. OTHER: No other significant finding. IMPRESSION: NEGATIVE STUDY OF THE RIGHT KNEE. NO RADIOGRAPHIC EVIDENCE OF ACUTE INJURY. TECHNICAL DOCUMENTATION: JOB ID: [id number] [employer]- All Rights Reserved Reading location - IP/workstation name: [email or web address]
--- NOTE | 2018-02-27 18:20 | ER Document Report ---
HPI - HPI Pain Level: 5 Notes: Patient is a 48-year-old female who presents with knee pain times 4-6 weeks. Patient reports that she has been seen at a emergency room as well as an urgent care for this issue but has not followed up with orthopedics yet. Patient reports she has tried taking acetaminophen, ibuprofen, diclofenac gel and gabapentin for the pain with minimal relief. Patient reports she has a follow- up with orthopedics scheduled for next Saturday. - CONSTITUTIONAL Constitutional: DENIES: Fever, Chills - EENT EENT: DENIES: Sore Throat, Ear Pain, Eye problems - NEURO Neurology: DENIES: Headache, Weakness, Vision blurred, Dizzinesss / Vertigo - CARDIOVASCULAR Cardiovascular: DENIES: Chest pain - RESPIRATORY Respiratory: DENIES: Trouble Breathing, Coughing - GASTROINTESTINAL Gastrointestinal: DENIES: Abdominal Pain, Black / Bloody Stools - URINARY Urinary: DENIES: Dysuria, Urgency, Frequency - MUSCULOSKELETAL Musculoskeletal: REPORTS: Extremity pain - right knee Past Medical History - General Information source: Patient - Social History Smoking Status: Current Some Day Smoker Chew tobacco use (# tins/day): No Frequency of alcohol use: None Drug Abuse: None Family History: Reviewed & Not Pertinent Patient has suicidal ideation: No Patient has homicidal ideation: No Neurological Medical History: Reports: Hx Migraine Endocrine Medical History: Reports: Hx Hypothyroidism Renal/ Medical History: Denies: Hx Peritoneal Dialysis Psychiatric Medical History: Reports: Hx Bipolar Disorder Past Surgical History: Reports: Hx Section - x3, Hx Hysterectomy, Hx Orthopedic Surgery - c-spine, Hx Tonsillectomy Vertical Provider Document - CONSTITUTIONAL Notes: PHYSICAL EXAMINATION: GENERAL: Well-appearing, well-nourished and in no acute distress. HEAD: Atraumatic, normocephalic. EYES: Pupils equal round extraocular movements intact, conjunctiva are normal. ENT: Nares patent NECK: Normal range of motion LUNGS: No respiratory distress Musculoskeletal: Normal range of motion, no swelling or ecchymosis noted to right knee. NEUROLOGICAL: Normal speech, normal gait. PSYCH: Normal mood, normal affect. SKIN: Warm, Dry, normal turgor, no rashes or lesions noted. - INFECTION CONTROL TRAVEL OUTSIDE OF THE [place] IN LAST 30 DAYS: No Course - Re-evaluation Re-evalutation: X-rays negative for any acute fracture or dislocation. No joint effusion noted on x-ray. Patient will be placed in a knee immobilizer and placed on crutches. Patient instructed to keep follow-up with her orthopedist next Saturday. - Vital Signs Vital signs: Temp Pulse Resp BP Pulse Ox 98.3 F 100 18 136/94 H 99 02/27/18 15:37 02/27/18 15:37 02/27/18 15:37 02/27/18 15:37 02/27/18 15:37 Procedures - Immobilization Right knee Pre-Proc Neuro Vasc Exam: Normal Immobilizer type: Crutches, Knee immobilizer Performed by: PCT Post-Proc Neuro Vasc Exam: Normal Alignment checked and good: Yes Discharge - Discharge Clinical Impression: Knee pain Qualifiers: Chronicity: acute Laterality: right Qualified Code(s): M25.561 - Pain in right knee Condition: Stable Disposition: HOME, SELF-CARE Additional Instructions: SPRAINED KNEE: Your sprained knee results from a stretching or tearing of the ligaments which support the joint. This often results from a bending stress -- such as a twisting fall while skiing or a "clip" while playing football. The ligaments will require time and protection to heal adequately. A knee sprain can be quite serious, and should be taken seriously. The usual treatment is splinting of the knee, ice packs, and elevation. You shouldn't walk on the leg if weightbearing is painful. Unless the sprain is obviously a minor one, follow-up exam is very important. The degree of ligament damage often cannot be fully assessed at first due to muscle spasm and pain. Your treatment plan may change based on the physician's findings during your follow-up examination. Call the doctor at once if there is severe swelling, increasing pain, numbness, or other alarming symptoms. SUSPECTED INTERNAL KNEE INJURY: The examiner of your injured knee suspects an internal injury to the cartilage or internal ligaments. This must be further investigated by an liquified natural gas specialist. The knee should be protected, ice packed, and elevated while awaiting your follow-up exam by the orthopedist. If there is severe swelling, severe pain, or any new symptoms while awaiting your exam, you should call the orthopedist. (If he/she is unavailable, call us or return for re-examination.) KNEE IMMOBILIZING SPLINT: The knee immobilizing splint will protect the injury while healing begins. This type of splint does not allow the knee to bend at all. No running or sports will be possible. If the splint allows painfree walking, it's giving adequate protection. If there is still significant pain, crutches may be needed as well. Don't do anything that hurts. Adjusted the splint, if necessary. The stiffeners on the sides are attached with Velcro, so they can be easily moved to adjust for thigh and calf size. If you need help with these adjustments, come back. You will lose muscle strength in the thigh while using this splint. The doctor will advise you if it's safe to do isometric knee exercises while you use it. USE OF CRUTCHES: The doctor has recommended that you not bear weight at this time. You will need to use crutches. Adjust the crutches so the tops come to about two inches under the armpit while you are standing upright. Use your hands -- not your armpits -- to support your weight. To get into a chair, support yourself with one crutch on the injured side. Hold the chair with the other hand, then lower yourself while putting all your weight on the good leg. Going up stairs is `good leg up, step up, then bring up crutches and bad leg.' Down stairs is `bad leg and crutches down, then bring good leg down.' If you develop numbness or swelling in an arm or hand, you are using the crutches incorrectly. Return if you are having any problems with the crutches. FOLLOW-UP CARE: If you have been referred to a physician for follow-up care, call the physician s office for an appointment as you were instructed or within the next two days. If you experience worsening or a significant change in your symptoms, notify the physician immediately or return to the Emergency Department at any time for re-evaluation. The x-ray today was negative. There was no fracture, dislocation or joint effusion noted. Please can continue to keep the follow-up appointment you have next Saturday with orthopedics. Take the diclofenac pills they may work better for you than the gel. Keep the knee immobilizer on, use the crutches and maintaining nonweightbearing status if possible. Prescriptions: Diclofenac Sodium [Voltaren 50 mg Tablet.dr] 50 mg PO TID #30 tablet.dr Forms: Return to Work
== END 2018-02-27 18:45 | disposition home or self-care (01) ==
LOC: ER 14:55
DX: M25.561 Pain in right knee (principal); F17.200 Nicotine dependence, unspecified, uncomplicated; Z90.710 Acquired absence of both cervix and uterus
CPT/HCPCS: 99283; 73564; L1830

== ENCOUNTER 2018-03-04 12:45 | Emergency (ER) | payer MEDICAID ==
[2018-03-04 12:58] VITALS: BP 139/91
--- NOTE | 2018-03-04 13:32 | ER Document Report ---
ED Medical Screen (RME) - General Chief Complaint: Pain With Urination Stated Complaint: URINARY PROBLEMS Time Seen by Provider: 03/04/18 13:21 Mode of Arrival: Ambulatory Information source: Patient Notes: 48-year-old female presents emergency department with complaints of dysuria, increased urgency, increased frequency. Patient states that this feels similar to her previous urinary tract infections. Patient states that a few weeks ago she had similar symptoms and was diagnosed with urinary tract infection. She was started on Macrobid. Patient states that she finished the antibiotic. She states that her symptoms went away. Patient states that she had sex and now she is having the symptoms again. She is also having abnormal vaginal discharge and vaginal itching and nausea, vomiting, back pain. He denies any fever or chills. I have greeted and performed a rapid initial assessment of this patient. A comprehensive ED assessment and evaluation of the patient, analysis of test results and completion of the medical decision making process will be conducted by additional ED providers. PHYSICAL EXAMINATION: GENERAL: Well-appearing, well-nourished and in no acute distress. HEAD: Atraumatic, normocephalic. EYES: Pupils equal round extraocular movements intact, conjunctiva are normal. ENT: Nares patent LUNGS: No respiratory distress Musculoskeletal: Normal range of motion NEUROLOGICAL: Normal speech, normal gait. PSYCH: Normal mood, normal affect. SKIN: Warm, Dry, normal turgor, no rashes or lesions noted. TRAVEL OUTSIDE OF THE [place] IN LAST 30 DAYS: No - Related Data Allergies/Adverse Reactions: amoxicillin [From Augmentin] Allergy (Verified 03/04/18 12:48) clarithromycin [From Biaxin] Allergy (Verified 03/04/18 12:48) rash clavulanic acid [From Augmentin] Allergy (Verified 03/04/18 12:48) tramadol Allergy (Verified 03/04/18 12:48) Past Medical History - Social History Chew tobacco use (# tins/day): No Frequency of alcohol use: None Drug Abuse: None Family history: None Neurological Medical History: Reports: Hx Migraine Endocrine Medical History: Reports: Hx Hypothyroidism Renal/ Medical History: Denies: Hx Peritoneal Dialysis Psychiatric Medical History: Reports: Hx Bipolar Disorder Past Surgical History: Reports: Hx Section - x3, Hx Hysterectomy, Hx Orthopedic Surgery - c-spine, Hx Tonsillectomy Physical Exam - Vital signs Vitals: Temp Pulse Resp BP Pulse Ox 98.6 F 108 H 16 139/91 H 97 03/04/18 12:56 03/04/18 12:56 03/04/18 12:56 03/04/18 12:56 03/04/18 12:56 Course - Vital Signs Vital signs: Temp Pulse Resp BP Pulse Ox 98.6 F 108 H 16 139/91 H 97 03/04/18 12:56 03/04/18 12:56 03/04/18 12:56 03/04/18 12:56 03/04/18 12:56
[2018-03-04 14:24] LABS: ABSOLUTE BASOPHILS # (AUTO) 0.1 10^3/uL (0.0-0.2); ABSOLUTE EOSINOPHILS # (AUTO) 0.2 10^3/uL (0.0-0.6); ABSOLUTE LYMPHOCYTES (AUTO) 1.9 10^3/uL (0.5-4.7); ABSOLUTE MONOCYTES (AUTO) 0.2 10^3/uL (0.1-1.4); BASOPHILS % (AUTO) 1.3 % (0-2); EOSINOPHILS % (AUTO) 2.5 % (0-6); HEMATOCRIT 37.1 % (36.0-47.0); HEMOGLOBIN 12.7 g/dL (12.0-15.5); LYMPHOCYTES % (AUTO) 30.1 % (13-45); MEAN CORPUSCULAR HEMOGLOBIN 26.5 pg (27.0-33.4); MEAN CORPUSCULAR HGB CONC 34.2 g/dL (32.0-36.0); MEAN CORPUSCULAR VOLUME 78 fl (80-97); MONOCYTES % (AUTO) 3.6 % (3-13); PLATELET COUNT 212 10^3/uL (150-450); RED BLOOD COUNT 4.78 10^6/uL (3.72-5.28); RED CELL DISTRIBUTION WIDTH 15.3 % (11.5-14.0); SEGMENTED NEUTROPHILS % (AUTO) 62.5 % (42-78); TOTAL CELLS COUNTED % (AUTO) 100 %; WHITE BLOOD COUNT 6.4 10^3/uL (4.0-10.5)
[2018-03-04 14:28] LABS: APPEARANCE,URINE CLOUDY; BILIRUBIN,URINE NEGATIVE (NEGATIVE); COLOR,URINE YELLOW; GLUCOSE, URINE NEGATIVE (NEGATIVE); KETONES,URINE NEGATIVE (NEGATIVE); LEUKOCYTE ESTERASE,URINE LARGE (NEGATIVE); NITRITE,URINE NEGATIVE (NEGATIVE); PROTEIN,URINE NEGATIVE (NEGATIVE); URINE SPECIFIC GRAVITY 1.005; UROBILINOGEN,URINE NEGATIVE mg/dL (<2.0)
[2018-03-04 14:38] LABS: ALANINE AMINOTRANSFERASE 25 U/L (9-52); ALBUMIN 4.2 g/dL (3.5-5.0); ALKALINE PHOSPHATASE 91 U/L (38-126); ANION GAP 12 (5-19); ASPARTATE AMINO TRANSFERASE 20 U/L (14-36); BILIRUBIN,DIRECT 0.2 mg/dL (0.0-0.4); BILIRUBIN,TOTAL 0.5 mg/dL (0.2-1.3); BLOOD UREA NITROGEN 12 mg/dL (7-20); CALCIUM 9.8 mg/dL (8.4-10.2); CARBON DIOXIDE 28 mmol/L (22-30); CHLORIDE 103 mmol/L (98-107); GLUCOSE 110 mg/dL (75-110); POTASSIUM 3.7 mmol/L (3.6-5.0); SODIUM 143.4 mmol/L (137-145); TOTAL PROTEIN 7.3 g/dL (6.3-8.2)
[2018-03-04] MEDS ORDERED: DIPHENHYDRAMINE HCL 50 MG CAPSULE PO ONE (14:56)
[2018-03-04] MEDS ORDERED: PROCHLORPERAZINE MALEATE 10 MG TABLET PO ONE (14:56)
[2018-03-04] MEDS ORDERED: IBUPROFEN 800 MG TABLET PO ONE (14:56)
--- NOTE | 2018-03-04 14:56 | ER Document Report ---
ED GI/ - General Chief Complaint: Pain With Urination Stated Complaint: URINARY PROBLEMS Time Seen by Provider: 03/04/18 13:21 Mode of Arrival: Ambulatory Information source: Patient Notes: 48-year-old female presented to the ED for pain burning frequency urgency with urine. She states she was recently treated for UTI. She is having lower abdominal pain. She also is having nausea vomiting and headache. TRAVEL OUTSIDE OF THE [place] IN LAST 30 DAYS: No - HPI Patient complains to provider of: Other - Suprapubic pain burning with urination frequency and urgency Onset: Yesterday Timing/Duration: Gradual Quality of pain: Burning, Cramping Severity at maximum: Moderate Severity in ED: Moderate Pain Level: 3 Location: Suprapubic, Pelvis, Vaginal Vaginal bleeding (Compared to normal period): None Associated symptoms: Nausea, Urinary frequency, Urinary retention, Vaginal discharge, Other - Burning with urination, vaginal itching Exacerbated by: Other - Urination. She states she gets this every time she has sex. She states she wears a latex condom Relieved by: Denies Similar symptoms previously: Yes Recently seen / treated by doctor: Yes - Related Data Allergies/Adverse Reactions: amoxicillin [From Augmentin] Allergy (Verified 03/04/18 12:48) clarithromycin [From Biaxin] Allergy (Verified 03/04/18 12:48) rash clavulanic acid [From Augmentin] Allergy (Verified 03/04/18 12:48) tramadol Allergy (Verified 03/04/18 12:48) Past Medical History - General Information source: Patient - Social History Smoking Status: Never Smoker Chew tobacco use (# tins/day): No Frequency of alcohol use: None Drug Abuse: None Lives with: Spouse/Significant other Family History: Reviewed & Not Pertinent Patient has suicidal ideation: No Patient has homicidal ideation: No - Past Medical History Cardiac Medical History: Reports: None Pulmonary Medical History: Reports: None EENT Medical History: Reports: None Neurological Medical History: Reports: Hx Migraine Endocrine Medical History: Reports: Hx Hypothyroidism Renal/ Medical History: Reports: None Malignancy Medical History: Reports: None GI Medical History: Reports: None Musculoskeletal Medical History: Reports Hx Musculoskeletal Deformity, Reports Hx Musculoskeletal Trauma Skin Medical History: Reports None Psychiatric Medical History: Reports: Hx Bipolar Disorder Traumatic Medical History: Reports: Hx Fractures Infectious Medical History: Reports: None Past Surgical History: Reports: Hx Section - x3, Hx Hysterectomy, Hx Orthopedic Surgery - c-spine, Hx Tonsillectomy Review of Systems - Review of Systems Constitutional: No symptoms reported EENT: No symptoms reported Cardiovascular: No symptoms reported Respiratory: No symptoms reported Gastrointestinal: Nausea, Vomiting Genitourinary: Burning, Frequency, Urgency Female Genitourinary: Vaginal discharge Musculoskeletal: Back pain, Muscle pain Skin: No symptoms reported Hematologic/Lymphatic: No symptoms reported Neurological/Psychological: No symptoms reported Physical Exam - Vital signs Vitals: Temp Pulse Resp BP Pulse Ox 98.6 F 108 H 16 139/91 H 97 03/04/18 12:56 03/04/18 12:56 03/04/18 12:56 03/04/18 12:56 03/04/18 12:56 Interpretation: Normal - General General appearance: Appears well, Alert - HEENT Head: Normocephalic, Atraumatic Eyes: Normal Pupils: PERRL - Respiratory Respiratory status: No respiratory distress Chest status: Nontender Breath sounds: Normal Chest palpation: Normal - Cardiovascular Rhythm: Regular Heart sounds: Normal auscultation Murmur: No - Abdominal Inspection: Normal Distension: No distension Bowel sounds: Normal Tenderness: Nontender Organomegaly: No organomegaly - Genitourinary External exam: Normal Speculum exam: Vaginal discharge Vaginal bleeding: None Bimanuel exam: Bladder/Urethral tender - Back Back: Normal, Nontender. No: Tender, Deformity/step-off, CVA tenderness, Vertebra tenderness, Scars, Scoliosis, Wounds - Extremities General upper extremity: Normal inspection, Nontender, Normal color, Normal ROM , Normal temperature General lower extremity: Normal inspection, Nontender, Normal color, Normal ROM , Normal temperature, Normal weight bearing. No: Stephen's sign - Neurological Neuro grossly intact: Yes Cognition: Normal Orientation: AAOx4 [place] Coma Scale Eye Opening: Spontaneous [place] Coma Scale Verbal: Oriented [place] Coma Scale Motor: Obeys Commands [place] Coma Scale Total: 15 Speech: Normal Motor strength normal: LUE, RUE, LLE, RLE Sensory: Normal - Psychological Associated symptoms: Normal affect, Normal mood - Skin Skin Temperature: Warm Skin Moisture: Dry Skin Color: Normal Course - Vital Signs Vital signs: Temp Pulse Resp BP Pulse Ox 98.6 F 108 H 16 139/91 H 97 03/04/18 12:56 03/04/18 12:56 03/04/18 12:56 03/04/18 12:56 03/04/18 12:56 - Laboratory Result Diagrams: 03/04/18 14:00 03/04/18 14:00 Laboratory results interpreted by me: 03/04/18 03/04/18 03/04/18 14:00 14:00 14:45 MCV 78 L MCH 26.5 L RDW 15.3 H Urine Blood SMALL H Ur Leukocyte Esterase LARGE H LARGE H Discharge - Discharge Clinical Impression: UTI (urinary tract infection) Qualifiers: Urinary tract infection type: site unspecified Hematuria presence: with hematuria Qualified Code(s): N39.0 - Urinary tract infection, site not specified Vaginitis Qualifiers: Chronicity: acute Qualified Code(s): N76.0 - Acute vaginitis Condition: Stable Disposition: HOME, SELF-CARE Instructions: Family Physicians / Practices Additional Instructions: VAGINITIS: Your exam shows that you have vaginitis, a vaginal infection. The infection can be caused by a many different organisms, including trichomonas or Gardnerella. The usual symptoms are vaginal irritation and discharge. The treatment is usually antibiotics such as Flagyl. Laboratory tests can determine which germ is responsible. Use the medication as prescribed. Because this infection can be transmitted sexually, your sexual partner may need to be checked and treated also. If your physician has not discussed this with you, please check before resuming sexual relations. If a culture shows gonorrhea or chlamydia, the infection must be reported to the health department. Call the doctor if you develop pelvic pain, fever, or problems with urination, or if you don't improve as expected. URINARY TRACT INFECTION: Your evaluation indicates that you have a urinary tract infection. This is due to germs growing in the bladder. This is a common problem. This infection usually responds quickly to antibiotics. Your antibiotic should be taken exactly as prescribed. Drink plenty of fluids -- three to four quarts a day. Occasionally, a bladder anesthetic will be prescribed to help stop the feeling of urgency until the antibiotic has a chance to clear the infection. This may cause your urine to be dark orange. Certain urine infections require a culture. If the doctor obtained a culture, the results will be back in two days. You should call to see if a change in treatment is needed. A repeat urinalysis after you finish treatment is often recommended. The physician will let you know if further testing is required. Call the doctor if you develop fever, chills, flank pain, inability to urinate, or blood in the urine. CEPHALEXIN: The antibiotic you've been prescribed is a member of the cephalosporin class. This type of antibiotic covers a wide variety of infections, including those of the skin, lungs, and urinary tract. It's useful for staph infections. This antibiotic is slightly similar to the penicillin family. In rare cases , a person who is allergic to penicillin will also be allergic to this medication. If you have had a severe allergic reaction to penicillin, and have not taken this antibiotic since that time, notify your doctor. Antibiotics which cover many germs ("broad spectrum" antibiotics) are more likely to cause diarrhea or "yeast" infections. Women prone to vaginal yeast problems may suffer an attack after taking this antibiotic. In infants, oral thrush (white spots "stuck" on the cheek) or yeast diaper rash may result. See your doctor if these problems occur. Call at once if you develop itching, hives , shortness of breath, or lightheadedness. CEPHALOSPORINS: An antibiotic of the cephalosporin class has been prescribed. This type of antibiotic covers a wide variety of infections, including those of the skin, lungs, middle ear, and urinary tract. This antibiotic is somewhat similar to the penicillin family. In rare cases , a person who is allergic to penicillin will also be allergic to this medication. If you have had a severe allergic reaction to penicillin, and have not taken this antibiotic since that time, notify your doctor. Antibiotics which cover many germs ("broad spectrum" antibiotics) are more likely to cause diarrhea or "yeast" infections. Women prone to vaginal yeast problems may suffer an attack after taking this antibiotic. In infants, oral thrush (white spots "stuck" on the cheek) or yeast diaper rash may result. See your doctor if these problems occur. Call the doctor at once if you develop hives, itching, shortness of breath , or lightheadedness. AZITHROMYCIN: Azithromycin (Zithromax) is a broad spectrum antibiotic in the same class as erythromycin. It can treat a variety of bacterial infections, but is most frequently used for respiratory infections. Azithromycin is extremely long-lasting. It accumulates in body tissues and continues to kill bacteria for many days. In order to improve absorption, Azithromycin should be taken at least one hour before or two hours after a meal. It does not have the same strong tendency to upset the stomach as erythromycin and is usually very well tolerated. Patients who have had a rash or other true allergic reactions to erythromycin should not take this medication. Call if you develop gastrointestinal distress, severe diarrhea, rash, hives, itching, or shortness of breath. FOLLOW-UP CARE: If you have been referred to a physician for follow-up care, call the physician s office for an appointment as you were instructed or within the next two days. If you experience worsening or a significant change in your symptoms, notify the physician immediately or return to the Emergency Department at any time for re-evaluation. Call [phone] for the results of your gonorrhea and Chlamydia test will be here till 2:00 to night and I will be here tomorrow at 2 PM to 2 AM Prescriptions: Cephalexin Monohydrate [Keflex 500 mg Capsule] 500 mg PO Q6H 5 Days capsule Forms: Elevated Blood Pressure
[2018-03-04 15:17] LABS: APPEARANCE,URINE SLIGHTLY-CLOUDY; BILIRUBIN,URINE NEGATIVE (NEGATIVE); CALCIUM OXALATE CRYSTALS,URINE FEW /HPF; COLOR,URINE YELLOW; GLUCOSE, URINE NEGATIVE (NEGATIVE); KETONES,URINE NEGATIVE (NEGATIVE); LEUKOCYTE ESTERASE,URINE LARGE (NEGATIVE); NITRITE,URINE NEGATIVE (NEGATIVE); PROTEIN,URINE NEGATIVE (NEGATIVE); URINE SPECIFIC GRAVITY 1.019; UROBILINOGEN,URINE NEGATIVE mg/dL (<2.0)
[2018-03-04 15:56] LABS: BACTERIA (WET MOUNT) 4+ BACTERIA SEEN; RBCS (WET MOUNT) FEW RBCS SEEN; T.VAGINALIS (WET MOUNT) NO TRICHOMONAS SEEN; WBCS (WET MOUNT) 3+ WBCS SEEN; YEAST (WET MOUNT) NO YEAST SEEN
[2018-03-04] MEDS ORDERED: CEFTRIAXONE INJ 1000 MG VIAL IM ONE (16:21)
[2018-03-04] MEDS ORDERED: AZITHROMYCIN 250 MG TABLET PO ONE (16:21)
[2018-03-04] MEDS ORDERED: LIDOCAINE 1% INJ-PF (10 MG/ML) 30 ML SDV INJ ONE (16:24)
[2018-03-04] MEDS ORDERED: LIDOCAINE 1% INJ-PF (10 MG/ML) 30 ML SDV ONE (16:25)
[2018-03-04 17:20] LABS: CHLAM PCR NOT DETECTED (NOT DETECT); GON PCR NOT DETECTED (NOT DETECT)
== END 2018-03-04 16:53 | disposition home or self-care (01) ==
LOC: ER 12:45
DX: N39.0 Urinary tract infection, site not specified (principal); N76.0 Acute vaginitis; R30.9 Painful micturition, unspecified; R35.0 Frequency of micturition; R39.15 Urgency of urination; R11.2 Nausea with vomiting, unspecified; R51 Headache; R10.30 Lower abdominal pain, unspecified; R33.9 Retention of urine, unspecified
CPT/HCPCS: 99283; 96372; 36415; 87086; 87210; 85025; 87088; 80053; 81001; 87186; 87491; 87591; Q0144; J3490 ×3; S0183; J0696

== ENCOUNTER 2018-03-27 04:39 | Emergency (ER) | payer MEDICAID ==
--- NOTE | 2018-03-27 05:14 | ER Document Report ---
ED General - General Chief Complaint: Headache Stated Complaint: HEADACHE Time Seen by Provider: 03/27/18 04:54 TRAVEL OUTSIDE OF THE [place] IN LAST 30 DAYS: No - HPI Patient complains to provider of: DANG, diarrhea, vomiting, UTI Notes: 48-year-old female with past medical history of migraine headaches, tachycardia , a cervical neck fusion, and psychiatric issues presents to the emergency department fo feeling generally "lousy". She states that she was treated for bacterial vaginosis, trichomoniasis, and a UTI for which she is only on doxycycline and Flagyl. She does state that symptoms are improving. States that since then she has developed an occipital headache radiates into her neck, diarrhea, and vomiting. She states the headache is typical of her previous migraines and Fioricet typically aborts them. He last took Fioricet at 2130 last night. She states she has taken Imodium for the diarrhea and it is not helped. She denies any URI symptoms, shortness of breath, chest pain. She endorses headache, nausea, vomiting, diarrhea. - Related Data Allergies/Adverse Reactions: amoxicillin [From Augmentin] Allergy (Verified 03/04/18 12:48) clarithromycin [From Biaxin] Allergy (Verified 03/04/18 12:48) rash clavulanic acid [From Augmentin] Allergy (Verified 03/04/18 12:48) tramadol Allergy (Verified 03/04/18 12:48) Past Medical History - Social History Smoking Status: Former Smoker Chew tobacco use (# tins/day): No Frequency of alcohol use: Occasional Drug Abuse: None Family History: Reviewed & Not Pertinent Patient has suicidal ideation: No Patient has homicidal ideation: No Neurological Medical History: Reports: Hx Migraine Endocrine Medical History: Reports: Hx Hypothyroidism Renal/ Medical History: Denies: Hx Peritoneal Dialysis Musculoskeletal Medical History: Reports Hx Musculoskeletal Deformity, Reports Hx Musculoskeletal Trauma Psychiatric Medical History: Reports: Hx Bipolar Disorder Traumatic Medical History: Reports: Hx Fractures Past Surgical History: Reports: Hx Section - x3, Hx Hysterectomy, Hx Orthopedic Surgery - c-spine, Hx Tonsillectomy Review of Systems - Review of Systems Constitutional: See HPI EENT: See HPI Cardiovascular: See HPI Respiratory: See HPI Gastrointestinal: See HPI Genitourinary: See HPI Female Genitourinary: No symptoms reported Musculoskeletal: No symptoms reported Skin: No symptoms reported Hematologic/Lymphatic: No symptoms reported Neurological/Psychological: No symptoms reported Physical Exam - Vital signs Vitals: Temp Pulse Resp BP Pulse Ox 97.7 F 96 15 140/83 H 98 03/27/18 04:44 03/27/18 04:44 03/27/18 04:44 03/27/18 04:44 03/27/18 04:44 - Notes Notes: Reviewed vital signs and nursing note as charted by RN. CONSTITUTIONAL: Well-appearing, well-nourished, acting appropriately for age HEAD: Normocephalic, atraumatic, no swelling EYES: PERRL, Conjunctivae clear, no drainage, EOMI, no scleral icterus ENT: External ears without lesions, External auditory canal is patent, TMs without erythema, landmarks clear and well visualized, no rhinorrhea, Pharynx without erythema or lesions, no tonsillar hypertrophy, airway patent, mucous membranes pink and moist NECK: Supple, no cervical lymphadenopathy, no masses CARD: Regular rate and rhythm, no murmurs, no rubs, no gallops, capillary refill < 2 seconds, symmetric pulses RESP: The lungs are clear to auscultation bilaterally, no wheezing, no rales, no rhonchi. Respiratory rate and effort are normal, normal chest excursion. No respiratory distress, no retractions, no stridor, no nasal flaring, no accessory muscle use. ABD/GI: Normal bowel sounds, non-distended, soft, non-tender, no rebound, no guarding, no palpable organomegaly EXT: Normal ROM in all joints, non-tender to palpation, no effusions, no edema SKIN: Normal color for age and race, warm, dry, good turgor, no acute lesions noted NEURO: No facial asymmetry, moves all extremities equally, motor and sensory function intact Course - Re-evaluation Re-evalutation: 03/27/18 05:33 Plan is to give normal saline 1 L bolus, Toradol 15 mg IV, Compazine 10 mg IM since symptoms are typical for her migraines and this has worked in the past. Patient is neurologically intact, I have a low concern for CVA. No nuchal rigidity or concern for infectious process like meningitis. Most likely patient has arthritic symptoms in her neck from her previous neck fusion. Patient's vomiting and diarrhea can be attributed to the Flagyl as it is temporally related to initiation of therapy. Will get an EKG to assess QTC interval 03/27/18 06:01 Patient given Compazine 10 mg IM and Toradol 30 mg IM. She does endorse feeling a little bit better already. IV fluids have been started. EKG showed normal sinus rhythm, QTc interval 473 ms. at this point I do not have any concerns about giving her QTC prolonging medications to help with her nausea. 03/27/18 06:16 Evaluated patient. She does endorse feeling much better and IV fluids are just about completed. Patient is stable to discharge home. I told her to call her primary care doctor today for a follow-up appointment within 24-48 hours. - Vital Signs Vital signs: Temp Pulse Resp BP Pulse Ox 97.7 F 96 15 140/83 H 98 03/27/18 04:44 03/27/18 04:44 03/27/18 04:44 03/27/18 04:44 03/27/18 04:44 Discharge - Discharge Clinical Impression: Headache Qualifiers: Headache type: unspecified Headache chronicity pattern: chronic headache Intractability: not intractable Qualified Code(s): R51 - Headache Nausea & vomiting Qualifiers: Vomiting type: unspecified Vomiting Intractability: non-intractable Qualified Code(s): R11.2 - Nausea with vomiting, unspecified Condition: Good Disposition: HOME, SELF-CARE Instructions: Antinausea Medication ([facility]), Diarrhea, Nonspecific ([facility]), Headache ([facility]), Vomiting ([facility]) Additional Instructions: He was seen in the emergency department this headache, nausea, and vomiting. As you stated your headache is typical of migraines in the past. It is okay to take 1-2 tabs of Fioricet to abort her headache when you are at home every 6 hours. The Flagyl you are on frequently causes nausea and increased frequency of stools. It is therefore unlikely that you have an infectious process occurring in your GI tract. Try to sip fluids as tolerated, you can drink half Gatorade and half water to help hydrate herself at home. If you develop intractable vomiting, severe headache that is incapacitating, pass out, develop weakness in your extremities, please immediately return to the emergency department. Prescriptions: Ondansetron [Zofran Odt 4 mg Tablet (6 Tab/ER Disp)] 6 tab PO Q6HP PRN 2 Days # 6 dspk PRN Reason: Forms: Return to Work
[2018-03-27] MEDS ORDERED: NORMAL SALINE 1000 ML 1,000 ML IV ONE (05:21)
[2018-03-27] MEDS ORDERED: PROCHLORPERAZINE EDISYLATE INJ 10 MG/2 ML VIAL IM ONE (05:22)
[2018-03-27] MEDS ORDERED: KETOROLAC TROMETHAMINE INJ/PF 30 MG/1 ML SDV IV ONE (05:22)
[2018-03-27] MEDS ORDERED: ONDANSETRON 4 MG TAB.RAPDIS PO ONE ×2 (05:25→05:26)
[2018-03-27] MEDS ORDERED: KETOROLAC TROMETHAMINE 60 MG/2 ML SDV IM ONE (05:43)
[2018-03-27 07:07] VITALS: BP 147/79
--- NOTE | 2018-03-27 07:44 | EKG REPORT ---
SEVERITY:- NORMAL ECG - SINUS RHYTHM : Confirmed by: Amaury Griffin MD 27-Mar-2018 07:43:09
== END 2018-03-27 07:16 | disposition home or self-care (01) ==
LOC: ER 04:39
DX: R51 Headache (principal); R11.2 Nausea with vomiting, unspecified; R19.7 Diarrhea, unspecified; R00.0 Tachycardia, unspecified; M54.2 Cervicalgia
CPT/HCPCS: 93005; 99284; 96372; 96360; 93010; J1885; S0119; J0780; J7030

== ENCOUNTER 2019-02-24 18:47 | Emergency (ER) | payer MEDICAID ==
[2019-02-24] MEDS ORDERED: IBUPROFEN 800 MG TABLET PO ONE (19:07)
--- NOTE | 2019-02-24 19:08 | ER Document Report ---
ED Medical Screen (RME) - General Chief Complaint: Low Back Pain Stated Complaint: ABDOMINAL PAIN Time Seen by Provider: 02/24/19 19:05 Mode of Arrival: Ambulatory Information source: Patient Notes: This 49-year-old female with no past medical history presents emergency department with low back pain low abdominal pain. 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 She reports her lower abdominal area started hurting at the same time to denies fever vomiting diarrhea. Denies pain with void. Denies past medical history of chronic abdominal issues. She reports reports her back hurts more than her abdomen. She has been taking Tylenol Motrin without relief. I have greeted and performed a rapid initial assessment of this patient. A comprehensive ED assessment and evaluation of the patient, analysis of test results and completion of the medical decision making process will be conducted by additional ED providers. Dictation of this chart was performed using voice recognition software; therefore, there may be some unintended grammatical errors. TRAVEL OUTSIDE OF THE [place] IN LAST 30 DAYS: No - Related Data Allergies/Adverse Reactions: amoxicillin [From Augmentin] Allergy (Verified 03/04/18 12:48) clarithromycin [From Biaxin] Allergy (Verified 03/04/18 12:48) rash clavulanic acid [From Augmentin] Allergy (Verified 03/04/18 12:48) tramadol Allergy (Verified 03/04/18 12:48) Past Medical History - Social History Family history: None Neurological Medical History: Reports: Hx Migraine Endocrine Medical History: Reports: Hx Hypothyroidism Renal/ Medical History: Denies: Hx Peritoneal Dialysis Musculoskeltal Medical History: Reports Hx Musculoskeletal Deformity, Reports Hx Musculoskeletal Trauma Psychiatric Medical History: Reports: Hx Bipolar Disorder Traumatic Medical History: Reports: Hx Fractures Past Surgical History: Reports: Hx Section - x3, Hx Hysterectomy, Hx Orthopedic Surgery - c-spine, Hx Tonsillectomy
[2019-02-24 19:52] LABS: ABSOLUTE EOSINOPHILS # (AUTO) 0.1 10^3/uL (0.0-0.6); ABSOLUTE LYMPHOCYTES (AUTO) 2.7 10^3/uL (0.5-4.7); ABSOLUTE MONOCYTES (AUTO) 0.3 10^3/uL (0.1-1.4); BASOPHILS % (AUTO) 0.6 % (0-2); HEMATOCRIT 36.3 % (36.0-47.0); HEMOGLOBIN 12.1 g/dL (12.0-15.5); LYMPHOCYTES % (AUTO) 44.4 % (13-45); MEAN CORPUSCULAR HEMOGLOBIN 26.7 pg (27.0-33.4); MEAN CORPUSCULAR HGB CONC 33.3 g/dL (32.0-36.0); MEAN CORPUSCULAR VOLUME 80 fl (80-97); MONOCYTES % (AUTO) 4.7 % (3-13); PLATELET COUNT 194 10^3/uL (150-450); RED BLOOD COUNT 4.53 10^6/uL (3.72-5.28); RED CELL DISTRIBUTION WIDTH 14.1 % (11.5-14.0); SEGMENTED NEUTROPHILS % (AUTO) 48.3 % (42-78); TOTAL CELLS COUNTED % (AUTO) 100 %; WHITE BLOOD COUNT 6.2 10^3/uL (4.0-10.5)
[2019-02-24 20:02] LABS: APPEARANCE,URINE CLEAR; BILIRUBIN,URINE NEGATIVE (NEGATIVE); COLOR,URINE YELLOW; GLUCOSE, URINE NEGATIVE (NEGATIVE); KETONES,URINE NEGATIVE (NEGATIVE); PROTEIN,URINE NEGATIVE (NEGATIVE); URINE SPECIFIC GRAVITY 1.009; UROBILINOGEN,URINE NEGATIVE mg/dL (<2.0)
[2019-02-24 20:18] LABS: ALBUMIN 3.9 g/dL (3.5-5.0); ALKALINE PHOSPHATASE 80 U/L (38-126); ANION GAP 8 (5-19); ASPARTATE AMINO TRANSFERASE 19 U/L (14-36); BILIRUBIN,DIRECT 0.1 mg/dL (0.0-0.4); BILIRUBIN,TOTAL 0.3 mg/dL (0.2-1.3); BLOOD UREA NITROGEN 12 mg/dL (7-20); CALCIUM 9.3 mg/dL (8.4-10.2); CARBON DIOXIDE 29 mmol/L (22-30); CHLORIDE 103 mmol/L (98-107); GLUCOSE 81 mg/dL (75-110); POTASSIUM 3.9 mmol/L (3.6-5.0); TOTAL PROTEIN 6.8 g/dL (6.3-8.2)
[2019-02-24] MEDS ORDERED: DEXAMETHASONE SOD PHOS INJ 10 MG/1 ML VIAL IM ONE (20:25)
[2019-02-24] MEDS ORDERED: DIAZEPAM 5 MG TABLET PO ONE (20:25)
--- NOTE | 2019-02-24 21:35 | ER Document Report ---
ED General - General Chief Complaint: Back Pain Stated Complaint: ABDOMINAL PAIN Time Seen by Provider: 02/24/19 19:05 Primary Care Provider: ELMO LAZARO PA-C [Primary Care Provider] - Follow up as needed Mode of Arrival: Ambulatory Notes: Patient is a 49-year-old female that comes to the emergency department for chief complaint of right flank pain. She states 3 days ago she bent over to brass pickler a pill off of the floor, felt pain at the time, is felt pain in her back since that time. She states she felt some wrapping around to her abdomen a couple of times but she denies current abdominal pain. She denies incontinence, numbness, fever/chills, nausea/vomiting. Past medical history of hysterectomy, denies history of kidney stones. Remaining medical history includes migraines, hy pothyroidism, bipolar disorder. TRAVEL OUTSIDE OF THE [place] IN LAST 30 DAYS: No - Related Data Allergies/Adverse Reactions: amoxicillin [From Augmentin] Allergy (Verified 03/04/18 12:48) clarithromycin [From Biaxin] Allergy (Verified 03/04/18 12:48) rash clavulanic acid [From Augmentin] Allergy (Verified 03/04/18 12:48) tramadol Allergy (Verified 03/04/18 12:48) Past Medical History - General Information source: Patient - Social History Smoking Status: Never Smoker Frequency of alcohol use: None Drug Abuse: None Lives with: Family Family History: Reviewed & Not Pertinent Patient has suicidal ideation: No Patient has homicidal ideation: No Neurological Medical History: Reports: Hx Migraine Endocrine Medical History: Reports: Hx Hypothyroidism Renal/ Medical History: Denies: Hx Peritoneal Dialysis Musculoskeletal Medical History: Reports Hx Musculoskeletal Deformity, Reports Hx Musculoskeletal Trauma Psychiatric Medical History: Reports: Hx Bipolar Disorder Traumatic Medical History: Reports: Hx Fractures Past Surgical History: Reports: Hx Section - x3, Hx Hysterectomy, Hx Orthopedic Surgery - c-spine, Hx Tonsillectomy Review of Systems - Review of Systems Constitutional: No symptoms reported EENT: No symptoms reported Cardiovascular: No symptoms reported Respiratory: No symptoms reported Gastrointestinal: See HPI Genitourinary: See HPI Female Genitourinary: No symptoms reported Musculoskeletal: See HPI Skin: No symptoms reported Hematologic/Lymphatic: No symptoms reported Neurological/Psychological: No symptoms reported Physical Exam - Vital signs Vitals: Temp Pulse Resp BP Pulse Ox 98.0 F 74 18 115/75 100 02/24/19 19:22 02/24/19 19:22 02/24/19 19:22 02/24/19 19:22 02/24/19 19:22 - Notes Notes: GENERAL: Alert, interacts well. No acute distress. Comfortable and smiling. HEAD: Normocephalic, atraumatic. EYES: Pupils equal, round, and reactive to light. Extraocular movements intact. ENT: Oral mucosa moist, tongue midline. Oropharynx unremarkable. Airway patent. NECK: Full range of motion. Supple. Trachea midline. LUNGS: Clear to auscultation bilaterally, no wheezes, rales, or rhonchi. No respiratory distress. HEART: Regular rate and rhythm. No murmur ABDOMEN: Soft, non-tender. Non-distended. Bowel sounds present in all 4 quadrants. GENITOURINARY: Deferred EXTREMITIES: Moves all 4 extremities spontaneously. No edema, normal radial and dorsalis pedis pulses bilaterally. No cyanosis. BACK: There is tenderness along the right paralumbar musculature, no swelling or signs of trauma, no severe tenderness. Negative straight leg raise. No cervical, thoracic, lumbar midline tenderness. No saddle anesthesia, normal distal neurovascular exam. Moves all extremities in full range of motion. NEUROLOGICAL: Alert and oriented x3. Normal speech. Cranial nerves II through XII grossly intact. PSYCH: Normal affect, normal mood. SKIN: Warm, dry, normal turgor. No rashes or lesions noted. Course - Re-evaluation Re-evalutation: CBC, chemistry, urinalysis unremarkable. Patient with point tenderness on exam without central tenderness, saddle anesthesia, or other neurological deficits. Unremarkable vital signs, smiling and well-appearing patient. She was given dexamethasone and Valium here, it is completely resolved. Sending home on anti- inflammatory, muscle relaxer, discussed follow-up and return precautions in detail. Patient states appreciation and agreement. - Vital Signs Vital signs: Temp Pulse Resp BP Pulse Ox 98.0 F 73 18 145/81 H 99 02/24/19 21:55 02/24/19 21:55 02/24/19 21:55 02/24/19 21:55 02/24/19 21:55 - Laboratory Result Diagrams: 02/24/19 19:40 02/24/19 19:40 Laboratory results interpreted by me: 02/24/19 19:40 MCH 26.7 L RDW 14.1 H Discharge - Discharge Clinical Impression: Lower back pain Qualifiers: Chronicity: acute Back pain laterality: right Sciatica presence: without sciatica Qualified Code(s): M54.5 - Low back pain Condition: Stable Disposition: HOME, SELF-CARE Additional Instructions: Your evaluation is most consistent with muscle strain and spasm in the paracervical lumbar muscles. The remaining work-up is reassuring. You have been treated with a steroid, this should help with your symptoms over the next several days. If needed take the muscle relaxer and anti-inflammatory as prescribed. Follow-up with primary care. Return for any concerning or worsening symptoms including numbness, losing control of your bowel/bladder, fever/chills, severe worsening pain, vomiting, or any other concerning symptoms. Prescriptions: Cyclobenzaprine HCl [Flexeril 5 mg Tablet] 1 - 2 tab PO TID PRN #15 tablet PRN Reason: Naproxen 500 mg PO BID PRN #20 tablet PRN Reason: Referrals: ELMO LAZARO PA-C [Primary Care Provider] - Follow up as needed
[2019-02-24 21:56] VITALS: BP 145/81
== END 2019-02-24 21:55 | disposition home or self-care (01) ==
LOC: ER 18:47
DX: M54.5 Low back pain (principal); R10.9 Unspecified abdominal pain; Z88.0 Allergy status to penicillin; Z88.3 Allergy status to other anti-infective agents; Z90.710 Acquired absence of both cervix and uterus
CPT/HCPCS: 99283; 96374; 36415; 85025; 80053; 81001; J3490 ×2; J1100

== ENCOUNTER 2019-03-25 05:46 | Emergency (ER) | payer MEDICAID ==
[2019-03-25] MEDS ORDERED: KETOROLAC TROMETHAMINE INJ/PF 30 MG/1 ML SDV IV ONE (08:33)
[2019-03-25] MEDS ORDERED: PROCHLORPERAZINE EDISYLATE INJ 10 MG/2 ML VIAL IV ONE (08:33)
--- NOTE | 2019-03-25 08:36 | ER Document Report ---
ED General - General Chief Complaint: Headache Stated Complaint: HEADACHE/NECK PAIN Time Seen by Provider: 03/25/19 08:12 Primary Care Provider: ELMO LAZARO PA-C [Primary Care Provider] - Follow up as needed TRAVEL OUTSIDE OF THE [place] IN LAST 30 DAYS: No - HPI Notes: Patient is a 49-year-old female with history of spinal stenosis to the cervical spine and recurrent headaches who presents complaining of a headache for the past couple days that starts in her neck goes up into her head. Patient states that she has had headaches like this in the past and frequently. This is not the worst headache of her life and did not start as a thunderclap. She has had associated light sensitivity and some nausea. Patient also states that she has been on Keflex for about 3 days, but does continue to have some burning with urination. She has not noticed any vaginal discharge, odor, bleeding. She does not want tested for any STDs. She has no other concerns or complaints. Denies any fever, head injury, neck pain, changes in vision/speech/mentation/hearing, URI, sore throat, chest pain, palpitations, syncope, cough, shortness of breath, wheeze, dyspnea, abdominal pain, nausea/vomiting/diarrhea, urinary retention, hematuria, loss of control of bowel or bladder, numbness/tingling, saddle anesthesia, muscle paralysis/weakness, or rash. - Related Data Allergies/Adverse Reactions: amoxicillin [From Augmentin] Allergy (Verified 03/04/18 12:48) clarithromycin [From Biaxin] Allergy (Verified 03/04/18 12:48) rash clavulanic acid [From Augmentin] Allergy (Verified 03/04/18 12:48) tramadol Allergy (Verified 03/04/18 12:48) Home Medications: seroquel, cymbalta, hydrocodone, klonipin, abilify, synthroid, [id number] Past Medical History - Social History Smoking Status: Former Smoker Family History: Reviewed & Not Pertinent Patient has suicidal ideation: No Patient has homicidal ideation: No Neurological Medical History: Reports: Hx Migraine Endocrine Medical History: Reports: Hx Hypothyroidism Renal/ Medical History: Denies: Hx Peritoneal Dialysis Musculoskeletal Medical History: Reports Hx Musculoskeletal Deformity, Reports Hx Musculoskeletal Trauma Psychiatric Medical History: Reports: Hx Bipolar Disorder Traumatic Medical History: Reports: Hx Fractures Past Surgical History: Reports: Hx Section - x3, Hx Hysterectomy, Hx Orthopedic Surgery - c-spine, Hx Tonsillectomy Review of Systems - Review of Systems -: Yes All other systems reviewed and negative Physical Exam - Vital signs Vitals: Temp Pulse Resp BP Pulse Ox 98.4 F 85 16 127/51 H 98 03/25/19 06:08 03/25/19 06:08 03/25/19 06:08 03/25/19 06:08 03/25/19 06:08 - Notes Notes: PHYSICAL EXAMINATION: GENERAL: Well-appearing, well-nourished and in no acute distress. A&Ox4. Answers questions appropriately. HEAD: Atraumatic, normocephalic. Non-tender. EYES: Pupils equal round and reactive to light, extraocular movements intact, sclera anicteric, conjunctiva are normal. No nystagmus. ENT: Nares patent and without discharge. oropharynx clear without exudates. No tonsilar hypertrophy or erythema. Moist mucous membranes. NECK: Normal range of motion, supple without lymphadenopathy. No rigidity/meningismus. No midline tenderness. LUNGS: Breath sounds clear to auscultation bilaterally and equal. No wheezes rales or rhonchi. HEART: Regular rate and rhythm without murmurs, rubs, gallops. ABDOMEN: Soft, nontender, nondistended abdomen. No guarding, no rebound. Normal bowel sounds present. No CVA tenderness bilaterally. Musculoskeletal: Ext b/l: FROM to passive/active. Strength 5+/5. No deficits noted. No bony tenderness of extremities. Extremities: No cyanosis, clubbing, or edema b/l. Peripheral pulses 2+. Capillary refill less than 2 seconds. NEUROLOGICAL: NIH 0. GCS 15. Cranial nerves grossly intact. Normal speech, normal gait. Normal sensory, motor exams. Reflexes 2+ b/l. INNA's negative. Pronator drift negative. Heel/mccallum, finger/nose wnl. PSYCH: Normal mood, normal affect. SKIN: Warm, Dry, normal turgor, no rashes or lesions noted. Course - Re-evaluation Re-evalutation: 03/25/19 10:49 Patient is an afebrile, well-hydrated, 49-year-old female who presents to the ED with a headache, suspect benign. Vitals are acceptable without any significant tachycardia, tachypnea, or hypoxia. PE is otherwise unremarkable for any focal neurological deficits. NIH 0, GCS 15, cranial nerves grossly intact. Patient has had headaches like this in the past recently. UA unremarkable. She may continue her keflex. No other labs or imaging warranted at this time based on H&P. Patient was given Toradol, Compazine which has resolved her headache. Patient states that she is feeling much better and would like to go home. She is nontoxic-appearing and is tolerating p.o. without any difficulties. Low suspicion for any acute glaucoma, temporal arteritis, meningitis, intracranial hemorrhage, ischemic stroke, or fracture at this time. Patient is aware that this condition can change from initial presentation and that she needs to monitor symptoms closely for any acute changes. Recheck with your PCM/neurologist in 3-5 days. Return to the ED with any worsening/concerning symptoms otherwise as reviewed in discharge. Patient is in agreement. - Vital Signs Vital signs: Temp Pulse Resp BP Pulse Ox 98.4 F 85 16 127/51 H 98 03/25/19 06:08 03/25/19 06:08 03/25/19 06:08 03/25/19 06:08 03/25/19 06:08 Discharge - Discharge Clinical Impression: Headache Qualifiers: Headache type: unspecified Headache chronicity pattern: acute headache Intractability: not intractable Qualified Code(s): R51 - Headache Condition: Stable Disposition: HOME, SELF-CARE Instructions: Headache ([facility]) Additional Instructions: Rest, Ice/cool compress Tylenol/ibuprofen as needed Light stretches daily Strength exercises as able Moist heat and massage may help F/u with your PCP in 3-5 days for a recheck Consider consult(s) with Neurology for ongoing/worsening symptoms Return to the ED with any worsening symptoms and/or development of fever, headache, changes in behavior/mentation/vision/speech, chest pain, palpitations, syncope, shortness of breath, trouble breathing, abdominal pain, n/v/d, blood in stool/urine, loss of control of bowel/bladder, urinary retention, muscle weakness/paralysis, saddle anesthesia, numbness/tingling, or other worsening symptoms that are concerning to you. Forms: Elevated Blood Pressure Referrals: ELMO LAZARO PA-C [Primary Care Provider] - Follow up as needed RADHA PECK MD [NO LOCAL MD] - Follow up as needed
[2019-03-25 09:20] LABS: APPEARANCE,URINE CLOUDY; BILIRUBIN,URINE NEGATIVE (NEGATIVE); COLOR,URINE YELLOW; GLUCOSE, URINE NEGATIVE (NEGATIVE); KETONES,URINE NEGATIVE (NEGATIVE); LEUKOCYTE ESTERASE,URINE NEGATIVE (NEGATIVE); NITRITE,URINE NEGATIVE (NEGATIVE); PROTEIN,URINE NEGATIVE (NEGATIVE); URINE SPECIFIC GRAVITY 1.021; UROBILINOGEN,URINE NEGATIVE mg/dL (<2.0)
[2019-03-25 11:08] VITALS: BP 120/91
== END 2019-03-25 11:06 | disposition home or self-care (01) ==
LOC: ER 05:46
DX: R51 Headache (principal); H53.149 Visual discomfort, unspecified; R11.0 Nausea; R30.0 Dysuria; E03.9 Hypothyroidism, unspecified; F31.9 Bipolar disorder, unspecified; Z79.899 Other long term (current) drug therapy; Z79.891 Long term (current) use of opiate analgesic; Z87.891 Personal history of nicotine dependence; Z88.0 Allergy status to penicillin; Z88.1 Allergy status to other antibiotic agents; Z88.6 Allergy status to analgesic agent
CPT/HCPCS: 99283; 96374; 96375; 87086; 81001; J1885; J0780